=== PATIENT | female | born 1930 | race Caucasian/White ===

== ENCOUNTER → 2019-08-16 | Day surgery (SDC) | payer MEDICARE ==
[2019-08-14 12:33] LABS: BASOPHILS % 0.6 % (0.0-1.0); EOSINOPHILS # (AUTO) 0.1 (0.0-0.4); EOSINOPHILS % 1.6 % (0.0-6.0); HEMATOCRIT 34.2 % (34.2-44.1); HEMOGLOBIN 10.3 g/dL (12.0-16.0); LYMPHOCYTES # (AUTO) 1.6 (1.0-3.2); LYMPHOCYTES % 22.4 % (18.0-39.1); MEAN CORPUSCULAR HEMOGLOBIN 24.3 pg (28-32); MEAN CORPUSCULAR HGB CONC 30.1 g/dL (31-35); MEAN CORPUSCULAR VOLUME 80.9 fL (81-99); MONOCYTES # (AUTO) 0.6 (0.2-0.8); MONOCYTES % 8.2 % (4.4-11.3); NEUTROPHILS # (AUTO) 4.7 (2.1-6.9); NEUTROPHILS % 66.8 % (38.7-80.0); PLATELET COUNT 213 x10e3/uL (140-360); RED BLOOD COUNT 4.23 x10e6/uL (3.6-5.1); RED CELL DISTRIBUTION WIDTH 15.8 % (11.7-14.4)
[~2019-08-16] MED LIST: AMIODARONE HCL200 MG; AMLODIPINE BESYL5 MG PO; BENICAR20 MG PO; COQ-10100 MG; CRESTOR10 MG; FENTANYL CITRATE/PF 100MCG/2 ML INJ ONE; FUROSEMIDE40 MG PO; FUROSEMIDE40 MG/4 ML IV; LEVOTHYROXINE112 MCG PO; METFORMIN HCL500 MG PO; OMEPRAZOLE40 MG; PROPOFOL IV EMULSION 10 MG/ML 50 ML VIAL ONE; XARELTO20 MG
--- OUTSIDE RECORDS SUMMARY | 2019-08-16 05:28 | XMS REPORT ---
Author Author [facility] Address Unknown Phone Unavailable Care Team Providers Care Manager Body Name Role Phone MADHU SANDOVAL Unavailable Unavailable Problems This patient has no known problems. Allergies, Adverse Reactions, Alerts This patient has no known allergies or adverse reactions. Medications This patient has no known medications. Results Test Description Test Time Test Comments Text Results Atomic Results Result Comments MAMMOGRAPHY DIGITAL SCR BILAT [place] [address] Patient Name: TRINITY PHOENIX MR #: [id number] : 1930 Age/Sex: 87/F Req #: [id number] Adm Physician: Ordered by: MADHU SANDOVAL DO Report #: [id number] Location: MAMMO Room/Bed: Procedure: [id number] MG/MAMMOGRAPHY DIGITAL SCR BILAT Exam Date: 10/18/17 Exam Time: 932 REPORT STATUS: Signed #[id number] - MGSCRBIL #BILATERAL DIGITAL SCREENING MAMMOGRAM WITH CAD: 10/18/2017 Comparison is made to exams dated: 10/12/2016 mammogram, 10/06/2015 mammogram and 02/27/2015 mammogram - [facility]. Current study contains 4 films. There are scattered fibroglandular elements in both breasts. Current study was also evaluated with a Computer Aided Detection (CAD) system. There are benign vascular calcifications and calcifications in both breasts. 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 There are 3 mole markers on the left breast. Stable small intramammary lymph node in the right breast. No significant masses, calcifications, or other findings are seen in either breast. There has been no significant interval change. IMPRESSION: BENIGN There is no mammographic evidence of malignancy. A 1 year screening mammogram is recommended. The patient will be notified by letter of the results. Nimco Hooker Jr., D.O. cw/:11/09/2017 11:29:14 Semiconductor Processing Technician: Jolene GOMES(Lupis)(Camron), [facility] letter sent: Compared to Prior B9 Mammogram BI- RADS: 2 Benign Dictated By: NIMCO HOOKER DO 1129 Transcribed By: MAYTE on 11/09/17 1129 COPY TO: MADHU SANDOVAL DO
[2019-08-16 08:10] VITALS: BP 119/67
== END | disposition home or self-care (01) ==
LOC: OR 05:12
PROVIDERS: ATTEND Internal Medicine Gastroenterology
DX: K92.1 Melena (principal); D12.3 Benign neoplasm of transverse colon; K57.30 Diverticulosis of large intestine without perforation or abscess without bleeding; K64.8 Other hemorrhoids; K21.9 Gastro-esophageal reflux disease without esophagitis; E11.9 Type 2 diabetes mellitus without complications; I10 Essential (primary) hypertension; Z71.3 Dietary counseling and surveillance; E66.3 Overweight; G89.29 Other chronic pain; I48.91 Unspecified atrial fibrillation; Z88.6 Allergy status to analgesic agent; Z88.1 Allergy status to other antibiotic agents; Z88.0 Allergy status to penicillin; Z01.810 Encounter for preprocedural cardiovascular examination; Z01.812 Encounter for preprocedural laboratory examination; Z79.02 Long term (current) use of antithrombotics/antiplatelets; Z79.84 Long term (current) use of oral hypoglycemic drugs; Z68.29 Body mass index [BMI] 29.0-29.9, adult; Z86.73 Personal history of transient ischemic attack (TIA), and cerebral infarction without residual deficits; Z80.0 Family history of malignant neoplasm of digestive organs
CPT/HCPCS: 36415 ×2; 45385; 82948; 84132; 85025; 88305; 93005; J2704; J3010; 45378

== ENCOUNTER 2020-04-12 11:57 | Inpatient (IN) | payer MEDICARE ==
[~2020-04-12] VITALS: Ht 198.1 cm; Wt 86.6 kg
[~2020-04-12 11:57] MED LIST changes: -FENTANYL CITRATE/PF 100MCG/2 ML INJ ONE; -PROPOFOL IV EMULSION 10 MG/ML 50 ML VIAL ONE
--- OUTSIDE RECORDS SUMMARY | 2020-04-12 12:01 | XMS REPORT ---
Author Author [facility] Organization [facility] Address [address] [place] [id number] Phone Unavailable Care Team Providers Care Software Support Specialist Name Role Phone MADHU SANDOVAL Attphys Unavailable Problems This patient has no known problems. Allergies, Adverse Reactions, Alerts This patient has no known allergies or adverse reactions. Medications This patient has no known medications. Procedures This patient has no known procedures. Results Test Description Test Time Test Comments Results Result Comments Source MAMMOGRAPHY DIGITAL SCR BILAT [place] [address] Patient Name: TRINITY PHOENIX MR #: [id number] : 1930 Age/Sex: 87/F Req #: [id number] Adm Physician: Ordered by: MADHU SANDOVAL DO Report #: [id number] Location: MAMMO Room/Bed: Procedure: [id number] MG/MAMMOGRAPHY DIGITAL SCR BILAT Exam Date: 10/18/17 Exam Time: 0933 REPORT STATUS: Signed #[id number] - MGSCRBIL #BILATERAL DIGITAL SCREENING MAMMOGRAM WITH CAD: 10/18/2017 Comparison is made to exams dated: 10/12/2016 mammogram, 10/06/2015 mammogram and 02/27/2015 mammogram - [facility]. Current study contains 4 films. There are [...] results. Nimco Hooker Jr., D.O. cw/:11/09/2017 11:29:14 Card Cleaner: Jolene NO)(Camron), [facility] letter sent: Compared to Prior B9 Mammogram BI- RADS: 2 Benign Dictated By: NIMCO HOOKER DO 1129 Transcribed By: MAYTE on 11/09/17 1129 COPY TO: MADHU SANDOVAL DO
--- OUTSIDE RECORDS SUMMARY | 2020-04-12 12:12 | XMS REPORT ---
Author Author [facility] Organization [facility] Address [address] [place] [id number] Phone Unavailable Care Team Providers Care Medical Physicist Name Role Phone MADHU SANDOVAL Attphys Unavailable Problems This patient has no known problems. Allergies, Adverse Reactions, Alerts This patient has no known allergies or adverse reactions. Medications This patient has no known medications. Procedures This patient has no known procedures. Results Test Description Test Time Test Comments Results Result Comments Source MAMMOGRAPHY DIGITAL SCR BILAT [place] [address] Patient Name: TRINITY PHOENIX MR #: [id number] : 1930 Age/Sex: 87/F Req #: [id number] Adm Physician: Ordered by: MADHU SANDOVAL DO Report #: [id number] Location: MAMMO Room/Bed: Procedure: [id number] MG/MAMMOGRAPHY DIGITAL SCR BILAT Exam Date: 10/18/17 Exam Time: 0933 REPORT STATUS: Signed #[id number] - MGSCRBIL #BILATERAL DIGITAL SCREENING MAMMOGRAM WITH CAD: 10/18/2017 Comparison is made to exams dated: 10/12/2016 mammogram, 10/06/2015 mammogram and 02/27/2015 mammogram - [facility]. Current study contains 4 films. There are [...] results. Nimco Hooker Jr., D.O. cw/:11/09/2017 11:29:14 Last Ironer: Jolene GOMES(R)(M), [facility] letter sent: Compared to Prior B9 Mammogram BI- RADS: 2 Benign Dictated By: NIMCO HOOKER DO 1129 Transcribed By: MAYTE on 11/09/17 1129 COPY TO: MADHU SANDOVAL DO
[2020-04-12] MEDS ORDERED: ASPIRIN 81 MG CHEW TAB PO ONE (12:15)
--- NOTE | 2020-04-12 12:25 | NUR ---
notified ct of covid precautions
[2020-04-12] MEDS ORDERED: MEROPENEM 1GM 100 ML IV ONE (12:30)
[2020-04-12] MEDS ORDERED: DILTIAZEM HCL 5 MG/ML 5 ML VIAL IV NR (12:30)
[2020-04-12 12:36] LABS: BASOPHILS # (AUTO) 0.1 (0.0-0.1); BASOPHILS % 0.7 % (0.0-1.0); EOSINOPHILS # (AUTO) 0.1 (0.0-0.4); HEMATOCRIT 36.5 % (34.2-44.1); HEMOGLOBIN 10.5 g/dL (12.0-16.0); LYMPHOCYTES # (AUTO) 2.4 (1.0-3.2); MEAN CORPUSCULAR HEMOGLOBIN 22.7 pg (28-32); MEAN CORPUSCULAR HGB CONC 28.8 g/dL (31-35); MEAN CORPUSCULAR VOLUME 78.8 fL (81-99); MONOCYTES # (AUTO) 1.2 (0.2-0.8); NEUTROPHILS # (AUTO) 9.5 (2.1-6.9); NEUTROPHILS % 70.7 % (38.7-80.0); PLATELET COUNT 371 x10e3/uL (140-360); RED BLOOD COUNT 4.63 x10e6/uL (3.6-5.1); RED CELL DISTRIBUTION WIDTH 18.5 % (11.7-14.4)
[2020-04-12 12:49] LABS: ALBUMIN/GLOBULIN RATIO 0.6 (0.8-2.0); ANION GAP 19.1 mmol/L (8-16); CALCIUM 9.9 mg/dL (8.4-10.2); CREATININE, SERUM 1.55 mg/dL (0.57-1.11); POTASSIUM 4.1 mmol/L (3.5-5.1)
[2020-04-12 12:57] LABS: CREATINE KINASE MB 0.8 ng/mL (0-5.0)
--- NOTE | 2020-04-12 14:14 | Emergency Department Note ---
History of Present Illnes History of Present Illness Chief Complaint: General Medicine Complaints History of Present Illness This is a 89 year old female had a fall at home while on the phone with her son. Granddaughter arrived immediately, door was broken down and pt was found on the floor. Pt admits to feeling dizzy prior to the fall. Pt also complaining of cough for several weeks. Chief Complaint Comment REPORTS SHORTNESS OF BREATH FOR 1 WEEK AND COUGH FOR 6 MONTHS. CLIENT REPORTS A MECHANICAL FALL TODAY. CLIENT RECEIVED IN C-COLLAR FROM EMS. . Historian: Patient, Strategic Partnership Manager/EMS Arrival Mode: [facility] EMS Treatment SPECIAL OFFICER: O2, EKG, See EMS Report Table Hand Required: No Radiation: extremity Onset quality: sudden Duration (how long): hour(s) Timing of current episode: constant Chronicity: new Relieving factors: none Past Medical/Family History Physician Review I have reviewed the patient's past medical and family history. Any updates have been documented here. Past Medical History Recent Fever: No Clinical Suspicion of Infectio: Yes New/Unexplained Change in Ment: No Past Medical History: Hypertension, A-Fib Social History Smoking Cessation: Never Smoker Counseling Performed: No Alcohol Use: None Any Illegal Drug Use: No TB Exposure/Symptoms: No Physically hurt or threatened: No Other Any Pre-Existing Lines (PICC,: No Is patient up to date on immun: Yes Last Flu: UTD Last Pneumovax: UTD Review of Systems Review of Systems Constitutional: no symptoms EENTM: no symptoms Cardiovascular: no symptoms Respiratory: as per HPI, cough, dyspnea, dyspnea on exertion Gastrointestinal: no symptoms Genitourinary: no symptoms Musculoskeletal: back pain, joint pain Neurological: no symptoms, other (dizziness) Psychological: no symptoms Endocrine: no symptoms Hematological/Lymphatic: no symptoms Review of other systems All other systems reviewed and negative. Physical Exam Related Data Allergies: Coded Allergies: Penicillins (Verified Allergy, Unknown, 08/14/19) cefdinir (Verified Allergy, Unknown, 08/14/19) levofloxacin (Verified Allergy, Unknown, 08/14/19) meperidine (Verified Allergy, Unknown, 08/14/19) Uncoded Allergies: BIOXIN (Allergy, Unknown, 08/14/19) Triage Vital Signs Vital Signs Date Time Temp Pulse Resp B/P (MAP) Pulse Ox O2 Delivery O2 Flow Rate FiO2 04/12/20 12:00 98.9 100 20 155/60 90 Vital signs reviewed: Yes Physical Exam CONSTITUTIONAL Constitutional: well-developed, well-nourished HENT HENT: normocephalic, atraumatic, oropharynx clear/moist, nose normal HENT L/R: left ext ear normal, right ext ear normal EYES Eyes: PERRL, conjunctivae normal NECK Neck: ROM normal PULMONARY Pulmonary: effort normal, respiratory distress (tachypnea ) CARDIOVASCULAR Cardiovascular: regular rhythm, heart sounds normal, capillary refill normal, normal rate GASTROINTESTINAL Abdominal: soft, nontender, bowel sounds normal GENITOURINARY Genitourinary: exam deferred SKIN Skin: warm, dry MUSCULOSKELETAL Musculoskeletal: ROM normal NEUROLOGICAL Neurological: alert, no gross motor or sensory deficits PSYCHOLOGICAL Psychological: mood/affect normal, judgement normal Results Laboratory Result Diagram: 04/12/20 1214 04/12/20 1214 Laboratory Laboratory Tests Test 04/12/20 12:14 White Blood Count 13.42 x10e3/uL (4.8-10.8) Red Blood Count 4.63 x10e6/uL (3.6-5.1) Hemoglobin 10.5 g/dL (12.0-16.0) Hematocrit 36.5 % (34.2-44.1) Mean Corpuscular Volume 78.8 fL (81-99) Mean Corpuscular Hemoglobin 22.7 pg (28-32) Mean Corpuscular Hemoglobin Concent 28.8 g/dL (31-35) Red Cell Distribution Width 18.5 % (11.7-14.4) Platelet Count 371 x10e3/uL (140-360) Neutrophils (%) (Auto) 70.7 % (38.7-80.0) Lymphocytes (%) (Auto) 18.0 % (18.0-39.1) Monocytes (%) (Auto) 9.0 % (4.4-11.3) Eosinophils (%) (Auto) 1.0 % (0.0-6.0) Basophils (%) (Auto) 0.7 % (0.0-1.0) Neutrophils # (Auto) 9.5 (2.1-6.9) Lymphocytes # (Auto) 2.4 (1.0-3.2) Monocytes # (Auto) 1.2 (0.2-0.8) Eosinophils # (Auto) 0.1 (0.0-0.4) Basophils # (Auto) 0.1 (0.0-0.1) Absolute Immature Granulocyte (auto 0.08 x10e3/uL (0-0.1) Sodium Level 137 mmol/L (136-145) Potassium Level 4.1 mmol/L (3.5-5.1) Chloride Level 101 mmol/L (98-107) Carbon Dioxide Level 21 mmol/L (22-29) Anion Gap 19.1 mmol/L (8-16) Blood Urea Nitrogen 19 mg/dL (7-26) Creatinine 1.55 mg/dL (0.57-1.11) Estimat Glomerular Filtration Rate 32 ML/MIN (60-) BUN/Creatinine Ratio 12 (6-25) Glucose Level 207 mg/dL (74-118) Calcium Level 9.9 mg/dL (8.4-10.2) Total Bilirubin 0.6 mg/dL (0.2-1.2) Aspartate Amino Transf (AST/SGOT) 20 IU/L (5-34) Alanine Aminotransferase (ALT/SGPT) 15 IU/L (0-55) Alkaline Phosphatase 84 IU/L (40-150) Creatine Kinase 60 IU/L (29-168) Creatine Kinase MB 0.80 ng/mL (0-5.0) Troponin I 0.013 ng/mL (0-0.300) B-Type Natriuretic Peptide 433.2 pg/mL (0-100) Total Protein 7.8 g/dL (6.5-8.1) Albumin 3.0 g/dL (3.5-5.0) Globulin 4.8 g/dL (2.3-3.5) Albumin/Globulin Ratio 0.6 (0.8-2.0) Lab results reviewed: Yes Laboratory comments elevated BNP noted Leukocytosis noted Imaging Imaging results reviewed: Yes Impressions IMPRESSION: Limited evaluation of the left hip due to internal rotation. Cannot exclude nondisplaced fracture. Recommend left hip x-ray series. Otherwise, no acute fractures in the pelvis. IMPRESSION: Bilateral interstitial edema with a small left pleural effusion. Superimposed atypical pneumonia cannot be excluded. Recommend follow-up chest x-ray after diuresis. IMPRESSION: Head CT: No acute post traumatic intracranial abnormalities, particularly no hemorrhage. Cervical spine CT: 1. No acute fractures or dislocations. 2. Chronic degenerative changes as described. Note: Acute post traumatic spinal cord, vascular or ligamentous injury cannot adequately be assessed with CT. Signed by: Dr. Lesley Martin M.D. on 04/12/2020 2:26 PM IMPRESSION: Head CT: No acute post traumatic intracranial abnormalities, particularly no hemorrhage. Cervical spine CT: 1. No acute fractures or dislocations. 2. Chronic degenerative changes as described. Note: Acute post traumatic spinal cord, vascular or ligamentous injury cannot adequately be assessed with CT. 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 Assessment & Plan Assessment & Plan Problems: (1) CHF exacerbation (2) Syncope (3) Atrial fibrillation (4) Severe sepsis (5) Pneumonia Assessment & Plan 1. Severe Sepsis Time: 1222 Severe Sepsis/PNA 1. Source (time: suspected respiratory on arrival-PNA) 1222 2. SIRS (time: 1222 T 101 HR 128 RR 34) 3. Organ Dysfunction (time: possible AMS 1222 ) Interventions: Blood cultures collected 1224 Lactic acid collected 1224 Broad Spectrum antibiotics completed 1329 Lactic acid #1: 1431 (time resulted) Lactic acid #2: not indicated 2. CHF Exacerbation: -BNP 433 -lasix given -CXR showing pulmonary edema Depart Disposition: ADMITTED Last Vital Signs Date Time Temp Pulse Resp B/P (MAP) Pulse Ox O2 Delivery O2 Flow Rate FiO2 04/12/20 13:38 100 27 157/65 97 04/12/20 12:53 98.3 Home Meds Reported Medications Furosemide (FUROSEMIDE) 40 Mg Tablet, 40 MG PO Daily, #30 TAB 08/16/19 Ubidecarenone (COQ-10) 100 Mg Capsule 08/14/19 Amiodarone Hcl (AMIODARONE HCL) 200 Mg Tablet 08/14/19 Olmesartan Medoxomil (BENICAR) 20 Mg Tablet, 40 MG PO DAILY, #30 TAB 08/14/19 Rivaroxaban (XARELTO) 20 Mg Tablet, 15 08/14/19 Metformin Hcl (METFORMIN HCL) 500 Mg Tablet, 500 MG PO BID, #60 TAB 08/14/19 Amlodipine Besylate (AMLODIPINE BESYLATE) 5 Mg Tablet, 5 MG PO DAILY, #30 TAB 08/14/19 Rosuvastatin Calcium (CRESTOR) 10 Mg Tab, 20 THERAPEUTICALLY SUBSTITUTED WITH SIMVASTATIN 40MG 08/14/19 Levothyroxine Sodium (LEVOTHYROXINE SODIUM) 112 Mcg Tablet, 112 MCG PO DAILY, #30 TAB 08/14/19 Omeprazole (OMEPRAZOLE) 40 Mg Capsule.dr, 20 08/14/19 Medications in the ED Aspirin 81 mg PRN ONCE PO Last administered on 04/12/20at 12:30; Admin Dose 81 MG; Start 04/12/20 at 12:15; Stop 04/12/20 at 12:17; Status DC Diltiazem HCl 10 mg NOW IV Last administered on 04/12/20at 12:30; Admin Dose 10 MG; Start 04/12/20 at 12:30; Stop 04/12/20 at 13:59 Meropenem 100 ml @ 100 mls/hr ONCE ONCE IV ; Start 04/12/20 at 12:30; Stop 04/12/20 at 13:29; Status DC JOSE MAN, April 12, 2020 14:14
--- NOTE | 2020-04-12 14:29 | Diagnostic Imaging Report ---
EXAMINATION: Head and cervical spine CT without contrast. HISTORY: Status post fall, neck pain, low back pain, shortness of breath, cough COMPARISON: None. TECHNIQUE: Multidetector axial images were obtained without contrast from the foramen magnum to the vertex and through the cervical spine. The images were reconstructed using brain and bone algorithms. Thin section brain images were reformatted into coronal and sagittal planes. Dose modulation, iterative reconstruction, and/or weight based adjustment of the mA/kV was utilized to reduce the radiation dose to as low as reasonably achievable. HEAD CT FINDINGS: Skull/scalp: No lytic or blastic lesions. No fractures. Parenchyma: Normal. No mass, hemorrhage or CT evidence of acute vascular insult. Brain volume: Normal for age. Ventricles: No hydrocephalus or displacement. Arteries: No density suggestive of thrombus. Dural sinuses: No abnormal density. Extra-axial spaces: No abnormal density. Foramen magnum: No mass, Chiari malformation, or basilar invagination. Sella: No obvious mass. Paranasal/mastoid sinuses: Mucosal inflammatory thickening of the right maxillary sinus. CERVICAL SPINE CT FINDINGS: Alignment:Normal alignment and lordosis. Soft tissues: Partially calcified nodule in the left lobe of the thyroid gland which does not require follow follow-up. Vertebrae: Normal height and density. No acute fracture, infection or neoplasm. Degenerative changes: C1-C2: Normal C2-C3: Disc osteophyte compresses formation, bilateral uncovertebral and facet arthrosis. No stenosis. C3-C4: Disc osteophyte complex formation asymmetric to the right, uncovertebral and facet arthrosis. Mild canal and right foraminal stenosis. C4-C5: Asymmetric left disc osteophyte, uncovertebral and facet arthrosis. Minimal left foraminal narrowing. C5-C6: Disc osteophyte complex formation and bilateral uncovertebral arthrosis. Mild canal narrowing. No significant foraminal stenosis. C6-C7: Bilateral uncovertebral arthrosis. No stenosis. Incidental findings: Partially visualized large left pleural effusion. Partially visualized small tube in the right nasolacrimal duct. IMPRESSION: Head CT: No acute post traumatic intracranial abnormalities, particularly no hemorrhage. Cervical spine CT: 1. No acute fractures or dislocations. 2. Chronic degenerative changes as described. Note: Acute post traumatic spinal cord, vascular or ligamentous injury cannot adequately be assessed with CT. Signed by: Dr. Lesley Martin M.D. on 04/12/2020 2:26 PM
[2020-04-12 15:10] LABS: CLARITY,URINE SL CLOUDY (CLEAR); COLOR,URINE YELLOW (YELLOW)
[2020-04-12 15:11] LABS: LEUKOCYTE ESTERASE ,URINE NEGATIVE (NEGATIVE); NITRITE,URINE NEGATIVE (NEGATIVE); PROTEIN,URINE DIPSTICK >=300 (NEGATIVE)
[2020-04-12 15:12] LABS: KETONES,URINE NEGATIVE (NEGATIVE); URINE UROBILINOGEN 1 mg/dL (0.2 - 1)
[2020-04-12 15:13] LABS: BILIRUBIN,URINE SMALL (NEGATIVE)
[2020-04-12 15:19] LABS: BACTERIA,URINE MANY /HPF; EPITHELIAL CELLS,URINE FEW /LPF
--- NOTE | 2020-04-12 15:28 | Diagnostic Imaging Report ---
EXAMINATION: CHEST SINGLE (NOT PORTABLE) INDICATION: ^Y ^fall ^[id number] ^1319 COMPARISON: None FINDINGS: AP view TUBES and LINES: None. LUNGS: Lungs are well inflated. Diffuse bilateral interstitial opacities. Bibasilar atelectasis. PLEURA: Small left pleural effusion. No pneumothorax. HEART AND MEDIASTINUM: Mild enlargement of the cardiac silhouette. BONES AND SOFT TISSUES: No acute osseous lesion. Soft tissues are unremarkable. UPPER ABDOMEN: No free air under the diaphragm. IMPRESSION: Bilateral interstitial edema with a small left pleural effusion. Superimposed atypical pneumonia cannot be excluded. Recommend follow-up chest x-ray after diuresis. Signed by: Dr. Cindy Murguia M.D. on 04/12/2020 3:25 PM
[2020-04-12 15:30] LABS: HYPOCHROMASIA SLIGHT; RBC MORPHOLOGY COMMENT ABNORMAL
--- NOTE | 2020-04-12 15:30 | Diagnostic Imaging Report ---
PELVIS X-RAY - 1 VIEW HISTORY: ^Y ^fall ^[id number] ^[id number] COMPARISON: None available. FINDINGS: Bones: No acute displaced fracture. Limited evaluation of the left hip due to internal rotation. Osseous alignment is within normal limits. Joints: Moderate degenerative changes of both sacroiliac joints and lower lumbar spine. Soft tissues: The soft tissues appear unremarkable. IMPRESSION: Limited evaluation of the left hip due to internal rotation. Cannot exclude nondisplaced fracture. Recommend left hip x-ray series. Otherwise, no acute fractures in the pelvis. Signed by: Dr. Cindy Murguia M.D. on 04/12/2020 3:27 PM
[2020-04-12] MEDS ORDERED: MEROPENEM 1GM 100 ML IV SCH (15:45)
[2020-04-12] MEDS: FUROSEMIDE INJ 10 MG/ML 4 ML VIAL IV SCH (16:38)
--- NOTE | 2020-04-12 18:50 | NUR ---
PATIENT RECEIVED FROM ER PER STRETCHER. ALERT AND VERBALLY RESPONSIVE. SKIN WARM AND DRY TO TOUCH. NOTED WITH SOME NON PRODUCTIVE COUGH. O2 SAT AT 88-90% ON RA. O2 APPLIED VIA N/C AT 2L. SAT AT 95-98% AT THIS TIME. TELEMETRY BOX IN PLACE. BED IN LOWER POSITION, CALL LIGHT AT REACH.
--- NOTE | 2020-04-12 19:26 | NUR ---
BED SIDE REPORT GIVEN TO ON COMING NURSE.
[2020-04-12 19:30] VITALS: BP 125/82
--- NOTE | 2020-04-12 19:30 | NUR ---
PATENT IS A NEW ADMIT THAT ARRIVED VIA STRETCHER. PATIENT IS AWAKE AND TALKING. PATIENT IS RESTING IN BED. WILL CONTINUE TO MONITOR PATIENT.
[2020-04-12 19:35] VITALS: BP 125/82
[2020-04-12 20:00] VITALS: BP 143/85
[2020-04-12] MEDS ORDERED: ONDANSETRON HCL INJ 2MG/ML 2ML 2 MG/ML VIAL IV PRN (21:00)
[2020-04-12] MEDS ORDERED: DOCUSATE SODIUM 100 MG CAP PO PRN (21:00)
[2020-04-12] MEDS: ACETAMINOPHEN 325 MG TAB PO PRN (21:10)
[2020-04-12] MEDS: ZOLPIDEM TARTRATE 5 MG TAB PO PRN (21:11)
[2020-04-12] MEDS: BENZONATATE 100 MG CAP PO SCH (22:28)
[2020-04-13] VITALS (7 sets, daily range): BP systolic 110–141; BP diastolic 57–75
[2020-04-13] MEDS: BENZONATATE 100 MG CAP PO SCH ×3 (05:35→20:07)
--- NOTE | 2020-04-13 06:59 | NUR ---
Consulted physician notified of routine consultation. states she will be in to see the patient later today.
[2020-04-13] MEDS ORDERED: DEXTROSE 50% SYRINGE 50 ML IV PRN (07:00)
--- NOTE | 2020-04-13 07:00 | NUR ---
Spoke with MD regarding metformin. MD gave orders to put patient on low dose sliding scale.
--- NOTE | 2020-04-13 07:01 | NUR ---
report given to day nurse. patient is resting comfortably in the bed. bed is n the lowest position and call light is within reach.
--- NOTE | 2020-04-13 07:12 | NUR ---
Received patient lying in bed with eyes open. Respiration even and unlabored without SOB. Call light in reach.
[2020-04-13] MEDS: INSULIN REGULAR, HUMAN 100 UNIT/1 ML 3ML VIAL SQ SCH ×4 (08:16→21:39)
[2020-04-13] MEDS: LEVOTHYROXINE SODIUM 112 MCG TAB PO SCH (08:20)
[2020-04-13] MEDS: PANTOPRAZOLE SOD 40 MG TABEC PO SCH (08:20)
[2020-04-13] MEDS: AMIODARONE HCL 200 MG TAB PO SCH (08:20)
[2020-04-13] MEDS: AMLODIPINE BESYLATE 5 MG TAB PO SCH (08:20)
[2020-04-13] MEDS: FUROSEMIDE INJ 10 MG/ML 4 ML VIAL IV SCH ×2 (08:20→21:59)
[2020-04-13] MEDS: OLMESARTAN 20 MG TAB PO SCH (08:35)
[2020-04-13 10:01] LABS: BASOPHILS # (AUTO) 0.1 (0.0-0.1); BASOPHILS % 0.6 % (0.0-1.0); EOSINOPHILS # (AUTO) 0.2 (0.0-0.4); EOSINOPHILS % 1.7 % (0.0-6.0); HEMATOCRIT 32.3 % (34.2-44.1); HEMOGLOBIN 9.1 g/dL (12.0-16.0); LYMPHOCYTES # (AUTO) 0.7 (1.0-3.2); LYMPHOCYTES % 8.2 % (18.0-39.1); MEAN CORPUSCULAR HGB CONC 28.2 g/dL (31-35); MEAN CORPUSCULAR VOLUME 78.2 fL (81-99); MONOCYTES # (AUTO) 0.7 (0.2-0.8); MONOCYTES % 7.9 % (4.4-11.3); NEUTROPHILS # (AUTO) 7.2 (2.1-6.9); NEUTROPHILS % 81.3 % (38.7-80.0); PLATELET COUNT 275 x10e3/uL (140-360); RED BLOOD COUNT 4.13 x10e6/uL (3.6-5.1); RED CELL DISTRIBUTION WIDTH 18.6 % (11.7-14.4)
[2020-04-13 10:18] LABS: ANION GAP 16.4 mmol/L (8-16); CALCIUM 9.3 mg/dL (8.4-10.2); CREATININE, SERUM 1.41 mg/dL (0.57-1.11); POTASSIUM 4.4 mmol/L (3.5-5.1)
--- NOTE | 2020-04-13 12:47 | NUR ---
H&P cc: sob HPI: 89yoF, PCP , developed SOB for 1 week. no cp. PMH: PAF, hypothyroidism, HTN, DM, CVA 2004, peripheral edema PSHx: hysterectomy, cholecystectomy, cataract, nasal Allergies; see emr FH/SH; ; no cigs meds; see MAR ROS: no f/c/s/N/V/D/QUINONES/skin rash/back pain/leg pain/confusion v/s revd PE tired appearing anicteric ns1s2 reduced bs; cough wiht deep inspiration Kingsley soft nt nd a&ox3; normal speech labs/meds revd A/P: Sepsis- IV merrem UTI- IV merrem JUSTINE vs CKD Pulmonary edema- IV lasix AECHF- IV lasix Hypothyroidism PAF- amio; AC per cardiology Prop: scd dispo: Codey Wheeler MD, PHD.
[2020-04-13] MEDS: ALBUTEROL/IPRATROPIUM 3 ML NEB NEB PRN (16:45)
--- NOTE | 2020-04-13 18:58 | NUR ---
Report given to production supervisor off shift. Respiration even and unlabored without SOB. Call light in reach.
[2020-04-13] MEDS ORDERED: SODIUM CHLORIDE 0.9% 250ML 250 ML ONE (20:00)
[2020-04-13] MEDS: MEROPENEM 1GM 100 ML IV SCH (20:07)
[2020-04-13] MEDS: ACETAMINOPHEN 325 MG TAB PO PRN (21:59)
[2020-04-13] MEDS: ZOLPIDEM TARTRATE 5 MG TAB PO PRN (21:59)
[2020-04-14] VITALS (7 sets, daily range): BP systolic 98–127; BP diastolic 47–89
--- NOTE | 2020-04-14 00:49 | Consultation ---
DATE OF CONSULTATION: 04/13/2020 Cardiology Consultation REQUESTING PHYSICIAN: Codey Wheeler MD. REASON FOR CONSULTATION: CHF. HISTORY OF PRESENT ILLNESS: This is an 89-year-old woman with history of hypertension, hyperlipidemia, diabetes mellitus, right sided carotid artery disease, and atrial fibrillation, who presented to the ER after a fall. The patient reports she has been coughing since August. Her cough was worse this last week with dyspnea on exertion. She denied any fever or chills or recent sick contacts. In addition, she denies any chest pain, orthopnea, or PND. On the day of admission, she had been on the phone when she suffered a fall. Family arrived quickly and found the patient on the floor. She was therefore brought to the ER for further evaluation. Of note, the patient reported feeling dizzy just prior to her fall. She does endorse lower extremity edema, but notes this is unchanged. From baseline, she reports occasional palpitations. REVIEW OF SYSTEMS: Negative except as per HPI. PAST MEDICAL HISTORY: 1. Hypertension. 2. Hyperlipidemia. 3. Diabetes mellitus. 4. Right carotid artery disease. 5. Atrial fibrillation. PAST SURGICAL HISTORY: 1. Hysterectomy. 2. Cholecystectomy. 3. Eye surgery. 4. Nasal surgery. ALLERGIES: PLEASE SEE EMR. MEDICATIONS: Please see medication list. SOCIAL HISTORY: Denies tobacco, alcohol, or illicit drugs. FAMILY HISTORY: Pertinent for father with myocardial infarction. PHYSICAL EXAMINATION: VITAL SIGNS: Temperature 98.8 degrees, pulse 97, respiratory rate 18, blood pressure 123/73, and oxygen saturation 98% on 2 L nasal cannula. GENERAL: Elderly woman, in no acute distress. Awake and alert. HEENT: Normocephalic and atraumatic. Pupils are equal. No scleral icterus. NECK: Supple. No thyromegaly or cervical lymphadenopathy. No carotid bruits. LUNGS: Clear to auscultation bilaterally. No wheezes or crackles. HEART: Normal rate, regular rhythm. No murmur. Normal S1 and S2. ABDOMEN: Soft and nontender. EXTREMITIES: Trace edema. NEUROLOGIC: Nonfocal exam. LABORATORY DATA: WBC 8.82, hemoglobin 9.1, hematocrit 32.3, platelets 275. Sodium 136, potassium 4.4, chloride 100, CO2 of 24, BUN 17, and creatinine 1.41. BNP 433. IMPRESSION: 1. Fall. 2. Dizziness. 3. Ryjky-nw-sfqyfol systolic and diastolic heart failure, possible atypical pneumonia. 4. Hypertension. 5. Hyperlipidemia. 6. Diabetes mellitus. 7. Atrial fibrillation. RECOMMENDATIONS: Gentle IV diuretics, monitor the patient closely on telemetry for any bradyarrhythmias. Obtain carotid Doppler. Continue home cardiac medications otherwise including Xarelto for CVA prophylaxis. Last echocardiogram was reviewed. The patient does not have any significant valvular abnormalities that would explain her symptoms. Thank you for this consult. We will continue to follow. Yumiko Sterling MD ABS/MODL /[id number]
[2020-04-14] MEDS: BENZONATATE 100 MG CAP PO SCH ×3 (05:30→21:30)
--- NOTE | 2020-04-14 06:37 | NUR ---
patient is resting comfortably in the bed. no distress noted. bed is in lowest position.
[2020-04-14 06:48] LABS: BASOPHILS % 0.6 % (0.0-1.0); EOSINOPHILS # (AUTO) 0.2 (0.0-0.4); EOSINOPHILS % 3.6 % (0.0-6.0); HEMATOCRIT 32.7 % (34.2-44.1); HEMOGLOBIN 9.3 g/dL (12.0-16.0); LYMPHOCYTES % 15.1 % (18.0-39.1); MEAN CORPUSCULAR HEMOGLOBIN 22.4 pg (28-32); MEAN CORPUSCULAR HGB CONC 28.4 g/dL (31-35); MEAN CORPUSCULAR VOLUME 78.8 fL (81-99); MONOCYTES # (AUTO) 0.7 (0.2-0.8); MONOCYTES % 11.2 % (4.4-11.3); NEUTROPHILS # (AUTO) 4.4 (2.1-6.9); NEUTROPHILS % 69.2 % (38.7-80.0); PLATELET COUNT 262 x10e3/uL (140-360); RED BLOOD COUNT 4.15 x10e6/uL (3.6-5.1); RED CELL DISTRIBUTION WIDTH 18.7 % (11.7-14.4)
[2020-04-14 06:52] LABS: ANION GAP 17.7 mmol/L (8-16); CALCIUM 9.2 mg/dL (8.4-10.2); CREATININE, SERUM 1.34 mg/dL (0.57-1.11); POTASSIUM 3.7 mmol/L (3.5-5.1)
[2020-04-14] MEDS: INSULIN REGULAR, HUMAN 100 UNIT/1 ML 3ML VIAL SQ SCH ×4 (07:41→21:00)
[2020-04-14] MEDS: ALBUTEROL/IPRATROPIUM 3 ML NEB NEB PRN (08:06)
[2020-04-14 08:26] LABS: ANISOCYTOSIS MODERATE; HYPOCHROMASIA SLIGHT; OVALOCYTES FEW; PLATELET ESTIMATE ADEQUATE; PLATELET MORPHOLOGY COMMENT NORMAL; POLYCHROMASIA FEW
[2020-04-14 08:27] LABS: MICROCYTOSIS SLIGHT; RBC MORPHOLOGY COMMENT ABNORMAL
[2020-04-14] MEDS: AMLODIPINE BESYLATE 5 MG TAB PO SCH (08:53)
[2020-04-14] MEDS: OLMESARTAN 20 MG TAB PO SCH (09:19)
[2020-04-14] MEDS: FUROSEMIDE INJ 10 MG/ML 4 ML VIAL IV SCH ×2 (09:19→17:18)
[2020-04-14] MEDS: PANTOPRAZOLE SOD 40 MG TABEC PO SCH (09:19)
[2020-04-14] MEDS: LEVOTHYROXINE SODIUM 112 MCG TAB PO SCH (09:19)
[2020-04-14] MEDS: MEROPENEM 1GM 100 ML IV SCH ×2 (09:19→21:30)
[2020-04-14] MEDS: AMIODARONE HCL 200 MG TAB PO SCH (09:19)
[2020-04-14] MEDS ORDERED: CHLORASEPTIC SPRAY 177 ML BTL MM PRN (09:30)
--- NOTE | 2020-04-14 14:40 | NUR ---
IM- progress note ROS: see below ROS: no f/c/s/N/V/D/QUINONES/skin rash/back pain/leg pain/confusion v/s revd PE tired appearing anicteric ns1s2 reduced bs; cough wiht deep inspiration Kingsley soft nt nd a&ox3; normal speech labs/meds revd A/P: Sepsis- IV merrem UTI- IV merrem JUSTINE vs CKD Pulmonary edema- IV lasix AECHF- IV lasix Hypothyroidism PAF- amio; AC per cardiology Prop: scd dispo: 5-18 continue antibiotics and diuretics; less SOB; still coughing; strict I/O Codey Wheeler MD, PHD.
[2020-04-14] MEDS ORDERED: ONDANSETRON HCL 4 MG ORAL DISINTEGRATING TAB PO PRN (16:00)
--- NOTE | 2020-04-14 17:36 | NUR ---
Nutrition Screen Note RD Recommendation for Physician: - Continue current diet Plan of Care: RD following, monitoring for tolerance and adequacy Nutrition reason for involvement: DX: CHF on admit Primary Diagnose(s): CHF, PNA, sepsis PMH: PAF, HTN DM, CVA, cholecystectomy Ht: 66 in (per pt) Wt: 192.44 lb BMI: 22.2 kg/m2 IBW: [address] Assessment: (04/14) 89 YOF admitted for CHF, PNA, and sepsis. Pt seen today per dx for CHF. 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 Pt reports that family do the grocery shopping and cooking at home currently. Pt reports UBW of 185#, no wt loss noted. Pt denies any N/V/C/D. Chart reviewed. Labs and meds reviewed. Pt with no questions or concerns at time of visit. Will f/u with diet education when appropriate. Will continue to monitor. Current Diet: Cardiac Malnutrition Evaluation (04/14/20) The patient does not meet criteria for a specified degree of malnutrition at this time. Will re-evaluate at follow-up as appropriate. Diet Education Needs Assessment: Diet education indicated, pt not appropriate at this time. Diet tolerance: tolerating po Nutrition Care Level: low Signed: Gila Bradford RD, LD, [facility]
--- NOTE | 2020-04-14 17:55 | NUR ---
patient resting in bed, not in any SOB or distress, call light in reach. Dr Wheeler had rounds
[2020-04-15] VITALS (7 sets, daily range): BP systolic 107–140; BP diastolic 47–77
[2020-04-15] MEDS: BENZONATATE 100 MG CAP PO SCH ×3 (05:45→21:50)
--- NOTE | 2020-04-15 06:00 | NUR ---
RAMSAY CARE PERFORMED USING DONOVAN SOAP WIPES
--- NOTE | 2020-04-15 07:10 | NUR ---
REPORT GIVEN TO [facility] NURSE. AAOX3. NO SIGNS OF IV INFILTRATION. RESTING IN BED. BED LOCKED AND IN LOW POSITION. CALL LIGHT WITHIN REACH.
[2020-04-15] MEDS: INSULIN REGULAR, HUMAN 100 UNIT/1 ML 3ML VIAL SQ SCH ×4 (07:46→20:18)
--- NOTE | 2020-04-15 08:34 | NUR ---
IM- progress note ROS: see below ROS: no f/c/s/N/V/D/QUINONES/skin rash/back pain/leg pain/confusion v/s revd PE tired appearing anicteric ns1s2 reduced bs; cough with deep inspiration Kingsley soft nt nd a&ox3; normal speech labs/meds revd A/P: Sepsis- IV merrem UTI- IV merrem JUSTINE vs CKD Pulmonary edema- IV lasix AECHF- IV lasix Hypothyroidism PAF- amio; AC per cardiology Prop: scd dispo: 5-18 continue antibiotics and diuretics; less SOB; still coughing; strict I/O -19 improving; Codey Wheeler MD, PHD.
[2020-04-15] MEDS: FUROSEMIDE INJ 10 MG/ML 4 ML VIAL IV SCH ×2 (08:44→17:09)
[2020-04-15] MEDS: MEROPENEM 1GM 100 ML IV SCH ×2 (08:44→20:37)
[2020-04-15] MEDS: AMLODIPINE BESYLATE 5 MG TAB PO SCH (08:45)
[2020-04-15] MEDS: PANTOPRAZOLE SOD 40 MG TABEC PO SCH (08:45)
[2020-04-15] MEDS: AMIODARONE HCL 200 MG TAB PO SCH (08:45)
[2020-04-15] MEDS: OLMESARTAN 20 MG TAB PO SCH (08:45)
[2020-04-15] MEDS: LEVOTHYROXINE SODIUM 112 MCG TAB PO SCH (08:45)
--- NOTE | 2020-04-15 09:11 | NUR ---
Assisted patient to restroom, not in any distress or SOB, Tolerated breakfast
[2020-04-15] MEDS: ALBUTEROL/IPRATROPIUM 3 ML NEB NEB PRN ×2 (15:57→19:45)
[2020-04-16] VITALS (9 sets, daily range): BP systolic 90–121; BP diastolic 40–79
[2020-04-16] MEDS: ALBUTEROL/IPRATROPIUM 3 ML NEB NEB PRN ×4 (03:40→19:30)
[2020-04-16] MEDS: BENZONATATE 100 MG CAP PO SCH ×3 (05:20→21:40)
--- NOTE | 2020-04-16 05:44 | NUR ---
PROVIDED RAMSAY CARE VIA DONOVAN SOAP WIPES. TOLERATED WELL.
--- NOTE | 2020-04-16 06:51 | NUR ---
RECEIVED BEDSIDE SHIFT REPORT FROM OFF GOING NURSE. PATIENT IS RESTING IN BED, NO S/S OF DISTRESS NOTED. DENIES PAIN OR DISCOMFORT AT THIS TIME. CALL LIGHT WITHIN REACH. BED IN THE LOWEST POSITION.
--- NOTE | 2020-04-16 07:15 | NUR ---
REPORT GIVEN TO [facility] NURSE. AAOX3. RESTING IN BED. NO SIGNS OF IV INFILTRATION. BED LOCKED AND IN LOW POSITION. CALL LIGHT WITHIN REACH.
--- NOTE | 2020-04-16 07:21 | NUR ---
IM- progress note ROS: see below ROS: no f/c/s/N/V/D/QUINONES/skin rash/back pain/leg pain/confusion v/s revd PE tired appearing anicteric ns1s2 reduced bs; cough with deep inspiration Kingsley soft nt nd a&ox3; normal speech labs/meds revd A/P: Sepsis- IV merrem UTI- IV merrem JUSTINE vs CKD Pulmonary edema- IV lasix AECHF- IV lasix Hypothyroidism PAF- amio; AC per cardiology Prop: scd dispo: 5-18 continue antibiotics and diuretics; less SOB; still coughing; strict I/O 5-19 improving; 5-20 making progress; d/c planning; Codey Wheeler MD, PHD.
[2020-04-16] MEDS: FUROSEMIDE INJ 10 MG/ML 4 ML VIAL IV SCH ×2 (08:06→16:46)
[2020-04-16] MEDS: MEROPENEM 1GM 100 ML IV SCH ×2 (08:06→21:40)
[2020-04-16] MEDS: INSULIN REGULAR, HUMAN 100 UNIT/1 ML 3ML VIAL SQ SCH ×4 (08:06→21:40)
[2020-04-16] MEDS: AMIODARONE HCL 200 MG TAB PO SCH (08:07)
[2020-04-16] MEDS: LEVOTHYROXINE SODIUM 112 MCG TAB PO SCH (08:07)
[2020-04-16] MEDS: AMLODIPINE BESYLATE 5 MG TAB PO SCH (08:07)
[2020-04-16] MEDS: OLMESARTAN 20 MG TAB PO SCH (08:07)
[2020-04-16] MEDS: PANTOPRAZOLE SOD 40 MG TABEC PO SCH (08:07)
--- NOTE | 2020-04-16 08:28 | NUR ---
RAMSAY CARE PROVIDED AT THIS TIME.
--- NOTE | 2020-04-16 10:16 | NUR ---
ASKED DR. MIN IF OK TO DC RAMSAY, PER MD KEEP RAMSAY IN UNTIL CLOSER TO DISCHARGE.
--- NOTE | 2020-04-16 10:50 | NUR ---
ASSESSMENT: Spiritual concern Pt eager to return home. Pt states she has family support. Pt mildly traumatized by events leading up to admission. Intervention: Provided hospitality and empathic listening. Facilitated illness review and identification of emotions. Provided prayer and information 0n how to reach feather maker, if needed. Outcome: Pt expressed appreciation for visit. No need to follow at this time. TRELL VIVAS Quality Control Assistant Spiritual Care Department O: [phone]
--- NOTE | 2020-04-16 15:17 | NUR ---
PER DR. MIN, AMBULATE PATIENT ON ROOM AIR AND ASSESS 02 SAT.
--- NOTE | 2020-04-16 15:40 | NUR ---
ATTEMPTED TO AMBULATE PATIENT AT THIS TIME TO ASSESS O2 SAT. PATIENT STATED TO LET HER REST, SHE IS NOT FOR A WALK RIGHT NOW. NOTIFIED DR. MIN, PER MD ASSESSMENT MUST BE DONE NOW. WILL ATTEMPT AGAIN.
--- NOTE | 2020-04-16 16:00 | NUR ---
AMBULATED PATIENT DOWN THE [place] ON ROOM AIR. O2 SATS BETWEEN 291 AND 293%, NO S/S OF DISTRESS NOTED. NOTIFIED DR. MIN AT THIS TIME.
--- NOTE | 2020-04-16 17:29 | NUR ---
NOTIFIED PATIENT THAT NURSE RECEIVED ORDER TO DC RAMSAY. PER PATIENT, ASK MD IF OK TO DC RAMSAY AROUND BEDTIME. ASKED DR. MIN, PER MD OK TO DC RAMSAY AT BEDTIME. PER , OK TO DC AT BEDTIME.
--- NOTE | 2020-04-16 19:10 | NUR ---
BEDSIDE SHIFT REPORT GIVEN TO ONCOMING NURSE. PATIENT IS IN STABLE CONDITION, NO ACUTE DISTRESS NOTED. CALL LIGHT WITHIN REACH. BED IN THE LOWEST POSITION.
--- NOTE | 2020-04-16 19:15 | NUR ---
Patient visited in room during nursing rounds. Patient alert and oriented x3. Ambulatory in room with walker and assistance prn. Pt has intermittent non-productive cough. On IV Lasix and IV antibiotic as scheduled. Kingsley in place for I&Os but will be taken out tonight per MD (Dr. Wheeler) order. Call capone within reach. Will monitor pt closely.
--- NOTE | 2020-04-16 20:15 | NUR ---
Kingsley catheter taken out as per MD order. Pt is due to void. Pt has worn diaper per preference.
[2020-04-17] VITALS (9 sets, daily range): BP systolic 108–145; BP diastolic 44–67
--- NOTE | 2020-04-17 | NUR ---
Patient has urinated at this time (post hoskins catheter removal).
[2020-04-17] MEDS: BENZONATATE 100 MG CAP PO SCH ×3 (05:20→21:10)
--- NOTE | 2020-04-17 06:18 | NUR ---
IM- progress note ROS: see below ROS: no f/c/s/N/V/D/QUINONES/skin rash/back pain/leg pain/confusion v/s revd PE tired appearing anicteric ns1s2 reduced bs; cough with deep inspiration Kingsley soft nt nd a&ox3; normal speech labs/meds revd A/P: Sepsis- IV merrem UTI- IV merrem JUSTINE vs CKD Pulmonary edema- IV lasix AECHF- IV lasix Hypothyroidism PAF- amio; AC per cardiology Prop: scd dispo: 5-18 continue antibiotics and diuretics; less SOB; still coughing; strict I/O 5- improving; 5-20 making progress; d/c planning; 5- check labs; Codey Wheeler MD, PHD.
--- NOTE | 2020-04-17 06:48 | NUR ---
Received bedside shift report from off going nurse. Patient is resting in bed, no acute distress noted. Call light within reach. Bed in the lowest position.
[2020-04-17 07:05] LABS: BASOPHILS % 0.6 % (0.0-1.0); EOSINOPHILS # (AUTO) 0.3 (0.0-0.4); EOSINOPHILS % 5.3 % (0.0-6.0); HEMATOCRIT 29.7 % (34.2-44.1); HEMOGLOBIN 8.7 g/dL (12.0-16.0); LYMPHOCYTES # (AUTO) 0.7 (1.0-3.2); LYMPHOCYTES % 11.6 % (18.0-39.1); MEAN CORPUSCULAR HEMOGLOBIN 22.4 pg (28-32); MEAN CORPUSCULAR HGB CONC 29.3 g/dL (31-35); MEAN CORPUSCULAR VOLUME 76.5 fL (81-99); MONOCYTES # (AUTO) 0.7 (0.2-0.8); MONOCYTES % 10.8 % (4.4-11.3); NEUTROPHILS # (AUTO) 4.4 (2.1-6.9); NEUTROPHILS % 71.1 % (38.7-80.0); PLATELET COUNT 234 x10e3/uL (140-360); RED BLOOD COUNT 3.88 x10e6/uL (3.6-5.1); RED CELL DISTRIBUTION WIDTH 18.3 % (11.7-14.4)
[2020-04-17 07:26] LABS: ANION GAP 17.6 mmol/L (8-16); CALCIUM 9.1 mg/dL (8.4-10.2); CREATININE, SERUM 1.33 mg/dL (0.57-1.11); POTASSIUM 3.6 mmol/L (3.5-5.1)
[2020-04-17] MEDS: FUROSEMIDE INJ 10 MG/ML 4 ML VIAL IV SCH ×2 (07:45→16:00)
[2020-04-17] MEDS: OLMESARTAN 20 MG TAB PO SCH (07:45)
[2020-04-17] MEDS: MEROPENEM 1GM 100 ML IV SCH ×2 (07:45→21:50)
[2020-04-17] MEDS: INSULIN REGULAR, HUMAN 100 UNIT/1 ML 3ML VIAL SQ SCH ×4 (07:45→21:00)
[2020-04-17] MEDS: PANTOPRAZOLE SOD 40 MG TABEC PO SCH (07:46)
[2020-04-17] MEDS: AMIODARONE HCL 200 MG TAB PO SCH (07:46)
[2020-04-17] MEDS: LEVOTHYROXINE SODIUM 112 MCG TAB PO SCH (07:46)
[2020-04-17 07:50] LABS: POLYCHROMASIA FEW
[2020-04-17] MEDS: ALBUTEROL/IPRATROPIUM 3 ML NEB NEB PRN ×3 (07:50→19:15)
[2020-04-17 07:51] LABS: ANISOCYTOSIS SLIGHT; HYPOCHROMASIA SLIGHT; PLATELET ESTIMATE ADEQUATE; PLATELET MORPHOLOGY COMMENT NORMAL; RBC MORPHOLOGY COMMENT NORMAL
[2020-04-17 08:02] LABS: MAGNESIUM 2.1 MG/DL (1.3-2.1); PHOSPHORUS 3.5 MG/DL (2.3-4.7)
[2020-04-17] MEDS: GUAIFENESIN/DEXTROMETHORPHAN LIQD 5 ML UDC PO SCH ×3 (08:55→21:10)
[2020-04-17] MEDS: ACETAMINOPHEN 325 MG TAB PO PRN (09:02)
--- NOTE | 2020-04-17 09:48 | NUR ---
Received order for home health. Spoke to pt at bedside. Pt states she has never had home health previously and to use any company in network with her insurance. Choice letter signed for [facility]. Signed copy placed in chart. Copy to pt with company's contact information. IMM letter discussed with pt. She verbalized understanding. Signed copy placed in chart. Copy to pt. Home health referral faxed to [facility] at [phone] / . Addendum: 04/18/20 at 1027 by Judy Hendrix CM Correction:
--- NOTE | 2020-04-17 12:12 | Diagnostic Imaging Report ---
X-ray chest frontal and lateral views Comparison: 04/12/2020 Indication: Cough, shortness of breath Findings: Central airways are unremarkable. Cardiomegaly. Atherosclerotic aorta. Left pleural effusion. Left lower lobe consolidation/atelectasis. Patchy opacity right upper lung. Redistribution of perivascular flow and prominence of interstitial markings. No acute changes in the regional bones. The thoracic spine is poorly visualized but mild thoracic kyphosis at the mid level is suspected raising the possibility of compression of the thoracic vertebrae. Upper abdomen unremarkable to the extent seen. Impression: Significant improvement in the appearance of the chest compared with the exam 5 days earlier. There is a left lower lobe pneumonia/atelectasis and a left pleural effusion. There is interstitial edema and patchy opacities in the right upper lung likely representing pulmonary edema. Signed by: Nino Mata MD on 04/17/2020 12:09 PM
--- NOTE | 2020-04-17 12:36 | NUR ---
Received call from [facility]. States they received clinicals and are ready to admit pt once she discharges from hospital
--- NOTE | 2020-04-17 18:57 | NUR ---
BEDSIDE SHIFT REPORT GIVEN TO ONCOMING NURSE. PATIENT IS IN STABLE CONDITION, NO ACUTE DISTRESS NOTED AT THIS TIME. CALL LIGHT WITHIN REACH. BED IN THE LOWEST POSITION.
--- NOTE | 2020-04-17 19:30 | NUR ---
Pt visited in room during nursing rounds. Patient alert and oriented x3. Ambulatory with use of walker and standby assist prn. Pt coughing intermittently and receiving cough meds as scheduled. Call capone within reach. Will monitor closely.
[2020-04-17] MEDS ORDERED: PROMETHAZINE 12.5MG/ NACL 0.9% 12.5 MG/50 ML BAG IV PRN (19:45)
[2020-04-17] MEDS ORDERED: SODIUM CHLORIDE 0.9% 250ML 250 ML ONE (19:49)
[2020-04-18 01:25] VITALS: BP 131/53
[2020-04-18] MEDS: BENZONATATE 100 MG CAP PO SCH (05:41)
[2020-04-18] MEDS: GUAIFENESIN/DEXTROMETHORPHAN LIQD 5 ML UDC PO SCH (05:41)
[2020-04-18 05:50] VITALS: BP 115/62
[2020-04-18] MEDS ORDERED: ZITHROMAX500 MG PO (06:33)
[2020-04-18] MEDS ORDERED: TESSALON PERLE100 MG PO (06:33)
[2020-04-18] MEDS ORDERED: FUROSEMIDE40 MG PO (06:33)
[2020-04-18] MEDS ORDERED: Guaifenesin/Dextromethorphan PO (06:33)
--- NOTE | 2020-04-18 06:36 | NUR ---
D/c SUmmary Principal Dx: Sepsis- IV merrem UTI- IV merrem Likely CKD3 Pulmonary edema- IV lasix AECHF- IV lasix Secondary Dx: Hypothyroidism PAF- amio; AC per cardiology Prop: scd dispo: 5-18 continue antibiotics and diuretics; less SOB; still coughing; strict I/O 5-19 improving; 5-20 making progress; d/c planning; 5-21 check labs; d/c home with PT stable d/c>35mins f/u pcp 2-4 days and cardiology 1 week Codey Wheeler MD, PHD.
--- NOTE | 2020-04-18 06:48 | NUR ---
RECEIVED BEDSIDE SHIFT REPORT FROM OFF GOING NURSE. PATIENT IS RESTING IN BED, NO S/S OF DISTRESS NOTED. CALL LIGHT WITHIN REACH. BED IN THE LOWEST POSITION.
[2020-04-18] MEDS: ALBUTEROL/IPRATROPIUM 3 ML NEB NEB PRN (07:18)
[2020-04-18 07:50] VITALS: BP 113/69
[2020-04-18 07:51] VITALS: BP 113/69
[2020-04-18] MEDS: INSULIN REGULAR, HUMAN 100 UNIT/1 ML 3ML VIAL SQ SCH (08:05)
[2020-04-18] MEDS: FUROSEMIDE INJ 10 MG/ML 4 ML VIAL IV SCH (08:11)
[2020-04-18] MEDS: MEROPENEM 1GM 100 ML IV SCH (08:11)
[2020-04-18] MEDS: PANTOPRAZOLE SOD 40 MG TABEC PO SCH (08:12)
[2020-04-18] MEDS: OLMESARTAN 20 MG TAB PO SCH (08:12)
[2020-04-18] MEDS: LEVOTHYROXINE SODIUM 112 MCG TAB PO SCH (08:12)
[2020-04-18] MEDS: AMIODARONE HCL 200 MG TAB PO SCH (08:12)
--- NOTE | 2020-04-18 10:28 | NUR ---
Called and spoke to Sebastian at [facility]. Informed her of discharge for today. Will have pt put on schedule to be seen.
--- NOTE | 2020-04-18 11:00 | NUR ---
Received discharge order from Dr. Wheeler, patient is in stable condition. IV line to right antecubital discontinued with tip intact, pressure applied to site, no bleeding noted. Discharge teaching provided to patient and granddaughter Bryanna Stock. Discharge folder with paperwork and prescriptions on hand. Discharge paperwork signed by granddaughter per patient's request. Patient accompanied to private auto via wheelchair by staff.
== END 2020-04-18 11:00 | disposition home health service (06) | DRG 871 ==
LOC: ER 12:09 → ERHOLD 15:46 → IMCU 18:12 → MED/SURG3 18:44
PROVIDERS: ADMIT Internal Medicine; ATTEND Internal Medicine
DX: A41.9 Sepsis, unspecified organism (principal); I50.43 Acute on chronic combined systolic (congestive) and diastolic (congestive) heart failure; J18.9 Pneumonia, unspecified organism; N17.9 Acute kidney failure, unspecified; I13.0 Hypertensive heart and chronic kidney disease with heart failure and stage 1 through stage 4 chronic kidney disease, or unspecified chronic kidney disease; I48.0 Paroxysmal atrial fibrillation; Z79.01 Long term (current) use of anticoagulants; E03.9 Hypothyroidism, unspecified; Z86.73 Personal history of transient ischemic attack (TIA), and cerebral infarction without residual deficits; Z11.59 Encounter for screening for other viral diseases; N18.9 Chronic kidney disease, unspecified; E11.22 Type 2 diabetes mellitus with diabetic chronic kidney disease; Z79.4 Long term (current) use of insulin
CPT/HCPCS: 36415; 70450; 71045; 71046; 72125; 72170; 80048; 80053; 81001; 82550; 82553; 82948; 83605; 83735; 83880; 84100; 84484; 85025; 87040; 87635; 93005; 93880; 94640; 97139; 99284; J1817; J1940; J2550; J7050

== ENCOUNTER 2020-05-16 13:01 | Inpatient (IN) | payer MEDICARE, OTHER ==
[~2020-05-16] VITALS: Ht 167.6 cm; Wt 81.6 kg
[~2020-05-16 13:01] MED LIST changes: -AMIODARONE HCL200 MG; +AMIODARONE HCL200 MG PO; -COQ-10100 MG; +COQ-10100 MG PO; -CRESTOR10 MG; +CRESTOR10 MG PO; +Guaifenesin/Dextromethorphan PO; +TESSALON PERLE100 MG PO; -XARELTO20 MG; +XARELTO20 MG PO; +ZITHROMAX500 MG PO
--- NOTE | 2020-05-16 14:02 | Diagnostic Imaging Report ---
EXAMINATION: CHEST SINGLE (PORTABLE) INDICATION: Shortness of breath COMPARISON: Chest radiograph 04/17/2020 and 04/12/2020 FINDINGS: LINES/TUBES:None LUNGS:The lungs are well-inflated. There is left basilar opacity partially silhouetting the left julián diaphragm. PLEURA:No pleural effusion or pneumothorax. MEDIASTINUM:The cardiomediastinal silhouette appears normal in size and shape. Atherosclerotic calcifications of the thoracic aorta. BONES/SOFT TISSUES:No acute osseous injury. ABDOMEN:No free air under the diaphragm. IMPRESSION: Left basilar patchy opacity appears unchanged from 04/17/2020 and improved from 04/12/2020, likely representing subsegmental atelectasis or alternatively residual radiographic findings of aspiration or pneumonia (resolution of radiographic findings can be delayed compared to clinical improvement). Signed by: Boris Olmedo MD on 05/16/2020 1:59 PM
[2020-05-16 14:16] LABS: BASOPHILS # (AUTO) 0.1 (0.0-0.1); BASOPHILS % 0.5 % (0.0-1.0); EOSINOPHILS % 0.3 % (0.0-6.0); HEMATOCRIT 36.7 % (34.2-44.1); HEMOGLOBIN 10.6 g/dL (12.0-16.0); LYMPHOCYTES # (AUTO) 1.4 (1.0-3.2); LYMPHOCYTES % 14.6 % (18.0-39.1); MEAN CORPUSCULAR HEMOGLOBIN 21.7 pg (28-32); MEAN CORPUSCULAR HGB CONC 28.9 g/dL (31-35); MEAN CORPUSCULAR VOLUME 75.2 fL (81-99); MONOCYTES # (AUTO) 0.8 (0.2-0.8); MONOCYTES % 8.4 % (4.4-11.3); NEUTROPHILS % 75.8 % (38.7-80.0); PLATELET COUNT 296 x10e3/uL (140-360); RED BLOOD COUNT 4.88 x10e6/uL (3.6-5.1); RED CELL DISTRIBUTION WIDTH 17.8 % (11.7-14.4)
[2020-05-16 14:35] LABS: ALBUMIN 3.3 g/dL (3.5-5.0); ALBUMIN/GLOBULIN RATIO 0.7 (0.8-2.0); ANION GAP 20.6 mmol/L (8-16); CALCIUM 9.7 mg/dL (8.4-10.2); CREATININE, SERUM 2.7 mg/dL (0.57-1.11)
[2020-05-16 14:43] LABS: CREATINE KINASE MB 1.1 ng/mL (0-5.0)
[2020-05-16 14:51] LABS: POTASSIUM 2.6 mmol/L (3.5-5.1)
--- NOTE | 2020-05-16 16:47 | Diagnostic Imaging Report ---
EXAM: CT Chest WITHOUT intravenous contrast 05/16/2020 3:20 PM INDICATION: Shortness of breath COMPARISON: Chest radiograph of earlier the same day and of 04/17/2020 and 04/12/2020 TECHNIQUE: Chest was scanned utilizing a multidetector helical scanner from the lung apex through the level of the adrenal glands without administration of IV contrast. Coronal and sagittal reformations were obtained. Routine protocol was performed. IV CONTRAST: None RADIATION DOSE: Total DLP: 480 mGy*cm. Dose modulation, iterative reconstruction, and/or weight based adjustment of the mA/kV was utilized to reduce the radiation dose to as low as reasonably achievable. COMPLICATIONS: None FINDINGS: LINES/ TUBES: None. LUNGS AND AIRWAYS: The central airways are patent. 7.0 x 4.3 x 9.5 cm posterior left lower lobe consolidation with air bronchograms. This corresponds with the left basilar opacity seen on chest radiograph. Prominently peripheral increased interstitial opacities with areas of groundglass opacity. PLEURA: The pleural spaces are clear. HEART AND MEDIASTINUM: The thyroid gland is normal. No supraclavicular or axillary lymphadenopathy. Mildly enlarged mediastinal lymph nodes measure up to 1.7 x 1.1 cm (axial image 55). No definite hilar lymphadenopathy. The heart is not enlarged. No pericardial effusion. Atherosclerotic calcifications involve the thoracic aorta, coronary arteries, and proximal great vessels. UPPER ABDOMEN: Small sliding hiatal hernia. No acute findings in the upper abdomen. BONES: The visualized bony thorax is within normal limits. SOFT TISSUES: Unremarkable. IMPRESSION: 7.0 x 4.3 x 9.5 cm posterior left lower lobe consolidation with air bronchograms. Given that the corresponding opacity on chest radiograph appears to be improving over time, this more likely represents an infectious/inflammatory process. Repeat chest CT in 6-8 weeks is recommended to assess for stability/resolution and to exclude underlying malignancy. Scattered predominantly peripheral increased interstitial opacities likely reflect component of underlying interstitial lung disease in an NSIP pattern. Signed by: Boris Olmedo MD on 05/16/2020 4:44 PM
--- NOTE | 2020-05-16 16:50 | NUR ---
PATIENT'S SON - [facility] [phone]
[2020-05-16] MEDS ORDERED: POTASSIUM CHLORIDE 20 MEQ TAB CR PO STA (17:16)
--- NOTE | 2020-05-16 17:37 | Emergency Department Note ---
History of Present Illnes History of Present Illness Chief Complaint: COVID PUI History of Present Illness This is a 89 year old female arrived to the ED with complaints of left-sided chest pain and shortness of breath. Patient states symptoms have been present for several days now worse. Historian: Patient Arrival Mode: Car Onset (how long ago): day(s) Timing of current episode: intermittent Progression: waxing and waning Associated symptoms: Reports nausea/vomiting Treatments prior to arrival: none Past Medical/Family History Physician Review I have reviewed the patient's past medical and family history. Any updates have been documented here. Past Medical History Recent Fever: No Clinical Suspicion of Infectio: Yes New/Unexplained Change in Ment: No Past Medical History: Hypertension, A-Fib Past Surgical History: Cholecysctectomy, Hysterectomy Social History Smoking Cessation: Never Smoker Counseling Performed: Yes Alcohol Use: None Any Illegal Drug Use: No TB Exposure/Symptoms: No Physically hurt or threatened: No Family History Family history of heart diseas: No Other Last Tetanus: UNKNOWN Any Pre-Existing Lines (PICC,: No Is patient up to date on immun: Yes Last Flu: 2019 Last Pneumovax: 2019 Review of Systems Review of Systems Constitutional: Reports no symptoms EENTM: Reports no symptoms Cardiovascular: Reports as per HPI, Reports chest pain Respiratory: Reports dyspnea Gastrointestinal: Reports no symptoms Genitourinary: Reports no symptoms Musculoskeletal: Reports no symptoms Integumentary: Reports no symptoms Neurological: Reports no symptoms Psychological: Reports no symptoms Endocrine: Reports no symptoms Hematological/Lymphatic: Reports no symptoms Physical Exam Related Data Allergies: Coded Allergies: Penicillins (Verified Allergy, Unknown, 05/16/20) cefdinir (Verified Allergy, Unknown, 05/16/20) levofloxacin (Verified Allergy, Unknown, 05/16/20) meperidine (Verified Allergy, Unknown, 05/16/20) Uncoded Allergies: BIOXIN (Allergy, Unknown, 08/14/19) Triage Vital Signs Vital Signs Date Time Temp Pulse Resp B/P (MAP) Pulse Ox O2 Delivery O2 Flow Rate FiO2 05/16/20 13:19 97.8 68 26 126/70 97 Vital signs reviewed: Yes Physical Exam CONSTITUTIONAL Constitutional: Present well-developed, Present well-nourished HENT HENT: Present normocephalic, Present atraumatic, Present oropharynx clear/moist, Present nose normal HENT L/R: Present left ext ear normal, Present right ext ear normal EYES Eyes: Reports PERRL, Reports conjunctivae normal NECK Neck: Present ROM normal PULMONARY Pulmonary: Present effort normal, Present respiratory distress CARDIOVASCULAR Cardiovascular: Present regular rhythm, Present heart sounds normal, Present capillary refill normal, Present normal rate GASTROINTESTINAL Abdominal: Present soft, Present nontender, Present bowel sounds normal GENITOURINARY Genitourinary: Present exam deferred SKIN Skin: Present warm, Present dry MUSCULOSKELETAL Musculoskeletal: Present ROM normal NEUROLOGICAL Neurological: Present alert, Present oriented x 3, Present no gross motor or sensory deficits PSYCHOLOGICAL Psychological: Present mood/affect normal, Present judgement normal Results Laboratory Result Diagram: 05/16/20 1359 05/16/20 1359 Laboratory Laboratory Tests Test 05/16/20 13:59 White Blood Count 9.30 x10e3/uL (4.8-10.8) Red Blood Count 4.88 x10e6/uL (3.6-5.1) Hemoglobin 10.6 g/dL (12.0-16.0) Hematocrit 36.7 % (34.2-44.1) Mean Corpuscular Volume 75.2 fL (81-99) Mean Corpuscular Hemoglobin 21.7 pg (28-32) Mean Corpuscular Hemoglobin Concent 28.9 g/dL (31-35) Red Cell Distribution Width 17.8 % (11.7-14.4) Platelet Count 296 x10e3/uL (140-360) Neutrophils (%) (Auto) 75.8 % (38.7-80.0) Lymphocytes (%) (Auto) 14.6 % (18.0-39.1) Monocytes (%) (Auto) 8.4 % (4.4-11.3) Eosinophils (%) (Auto) 0.3 % (0.0-6.0) Basophils (%) (Auto) 0.5 % (0.0-1.0) Neutrophils # (Auto) 7.0 (2.1-6.9) Lymphocytes # (Auto) 1.4 (1.0-3.2) Monocytes # (Auto) 0.8 (0.2-0.8) Eosinophils # (Auto) 0.0 (0.0-0.4) Basophils # (Auto) 0.1 (0.0-0.1) Absolute Immature Granulocyte (auto 0.04 x10e3/uL (0-0.1) Sodium Level 136 mmol/L (136-145) Potassium Level 2.6 mmol/L (3.5-5.1) Chloride Level 91 mmol/L (98-107) Carbon Dioxide Level 27 mmol/L (22-29) Anion Gap 20.6 mmol/L (8-16) Blood Urea Nitrogen 24 mg/dL (7-26) Creatinine 2.70 mg/dL (0.57-1.11) Estimat Glomerular Filtration Rate 17 ML/MIN (60-) BUN/Creatinine Ratio 9 (6-25) Glucose Level 150 mg/dL (74-118) Calcium Level 9.7 mg/dL (8.4-10.2) Total Bilirubin 0.4 mg/dL (0.2-1.2) Aspartate Amino Transf (AST/SGOT) 41 IU/L (5-34) Alanine Aminotransferase (ALT/SGPT) 32 IU/L (0-55) Alkaline Phosphatase 78 IU/L (40-150) Creatine Kinase 53 IU/L (29-168) Creatine Kinase MB 1.10 ng/mL (0-5.0) Troponin I 0.055 ng/mL (0-0.300) B-Type Natriuretic Peptide 151.6 pg/mL (0-100) Total Protein 7.9 g/dL (6.5-8.1) Albumin 3.3 g/dL (3.5-5.0) Globulin 4.6 g/dL (2.3-3.5) Albumin/Globulin Ratio 0.7 (0.8-2.0) Lab results reviewed: Yes Imaging Imaging results reviewed: Yes Impressions 89-year-old female arrived to the ED with complaints of dyspnea and intermittent chest pain. Patient admits to history of this in the past. Patient is tachypnea, evaluation, however, afebrile and oxygen saturations 99%. Low suspicion of COVID 19 given otherwise well-appearing patient. Procedures 12 Lead ECG Interpretation ECG Interpretation : ECG: ECG 1 Prior ECG tracings: reviewed Rhythm: atrial fibrillation Rate: normal Conduction: right bundle branch block Clinical Impression: normal ECG Assessment & Plan Medical Decision Making MDM 89 year female arrived to the ED with non-specific complaints of dyspnea, tachyp cornel noted on arrival and concerning given her age. No infectious etiology noted at time of admission. Patient also complaint of atypical chest pain. Patient admitted for ACS rule out as well as further workup of her dyspnea. Pulmonary consult did at time of admission. Absolutely no bacterial cause of illness noted at time of admission. Assessment & Plan Final Impression: (1) Shortness of breath (2) Chest pain Depart Disposition: ADMITTED Last Vital Signs Date Time Temp Pulse Resp B/P (MAP) Pulse Ox O2 Delivery O2 Flow Rate FiO2 05/16/20 14:14 98.3 84 19 158/67 100 Home Meds Active Scripts Azithromycin (ZITHROMAX) 500 Mg Tablet, 500 MG PO DAILY, #5 Prov:ALEXUS MIN MD 04/18/20 Furosemide (FUROSEMIDE) 40 Mg Tablet, 40 MG PO Q12H for 7 Days, #30 TAB Prov:ALEXUS MIN MD 04/18/20 [Guaifenesin/Dextromethorphan] 10 ML LIQD No Conflict Check, 10 ML PO Q8H for 10 Days Prov:ALEXUS MIN MD 04/18/20 Benzonatate (TESSALON PERLE) 100 Mg Capsule, 100 MG PO Q8HR for 10 Days Prov:ALEXUS MIN MD 04/18/20 Reported Medications Ubidecarenone (COQ-10) 100 Mg Capsule 08/14/19 Amiodarone Hcl (AMIODARONE HCL) 200 Mg Tablet 08/14/19 Olmesartan Medoxomil (BENICAR) 20 Mg Tablet, 40 MG PO DAILY, #30 TAB 08/14/19 Rivaroxaban (XARELTO) 20 Mg Tablet, 15 08/14/19 Metformin Hcl (METFORMIN HCL) 500 Mg Tablet, 500 MG PO BID, #60 TAB 08/14/19 Amlodipine Besylate (AMLODIPINE BESYLATE) 5 Mg Tablet, 5 MG PO DAILY, #30 TAB 08/14/19 Rosuvastatin Calcium (CRESTOR) 10 Mg Tab, 20 THERAPEUTICALLY SUBSTITUTED WITH SIMVASTATIN 40MG 08/14/19 Levothyroxine Sodium (LEVOTHYROXINE SODIUM) 112 Mcg Tablet, 112 MCG PO DAILY, #30 TAB 08/14/19 Omeprazole (OMEPRAZOLE) 40 Mg Capsule., 20 08/14/19 JOSE MAN, May 16, 2020 17:37
--- NOTE | 2020-05-16 18:00 | NUR ---
The pt arrived from ER via stretcher and reports she needs a snack as she has had nothing to eat since breakfast. She states she is diabetic. The pt. was provided a sandwich, pudding and orange juice.
[2020-05-16 20:00] VITALS: BP 124/60
[2020-05-16 20:54] VITALS: BP 124/60
[2020-05-16] MEDS ORDERED: GUAIFENESIN/DEXTROMETHORPHAN LIQD 5 ML UDC NG PRN (21:30)
[2020-05-16] MEDS: GUAIFENESIN/DEXTROMETHORPHAN LIQD 5 ML UDC PO SCH (21:56)
[2020-05-16 22:45] LABS: CREATINE KINASE MB 1.1 ng/mL (0-5.0)
[2020-05-17] VITALS (7 sets, daily range): BP systolic 101–154; BP diastolic 43–64
[2020-05-17 06:37] LABS: CREATINE KINASE MB 0.5 ng/mL (0-5.0)
[2020-05-17] MEDS: GUAIFENESIN/DEXTROMETHORPHAN LIQD 5 ML UDC PO SCH ×3 (06:48→20:53)
--- NOTE | 2020-05-17 07:30 | NUR ---
Bedside rounding has been completed and the pt. denies issues at this time. Reports pain in the left breast only when she coughs.
[2020-05-17] MEDS ORDERED: ALBUTEROL/IPRATROPIUM 3 ML NEB NEB PRN (10:00)
[2020-05-17] MEDS ORDERED: ACETAMINOPHEN 325 MG TAB PO PRN (10:00)
[2020-05-17] MEDS ORDERED: ONDANSETRON HCL INJ 2MG/ML 2ML 2 MG/ML VIAL IV PRN (10:00)
[2020-05-17] MEDS ORDERED: DOCUSATE SODIUM 100 MG CAP PO PRN (10:00)
[2020-05-17] MEDS ORDERED: ZOLPIDEM TARTRATE 5 MG TAB PO PRN (10:00)
--- NOTE | 2020-05-17 10:01 | NUR ---
H&P cc: cp HPI: 89yoF, PCP , developed worsening cough, which led to left rib pain with each coughing episode; No dizziness/fever/N/V/D. PMH: PAF, hypothyroidism, HTN, CVA 2004, peripheral edema, UTI, sepsis, pulmonary edema, CKD3 due to DM2 PSHx: hysterectomy, cholecystectomy, cataract, nasal Allergies; see emr FH/SH; ; no cigs meds; see MAR ROS: no f/c/s/N/V/D/QUINONES/skin rash/back pain/leg pain/confusion v/s revd PE tired appearing anicteric ns1s2 COUGH WITH DEEP INSPIRATION; soft nt nd a&ox3; normal speech FLAT AFFECT labs/meds revd A/P: Musculoskeletal chest pain- due to coughing; trend enzymes Left PNA- iv abx; mass? pulm consult. JUSTINE- hold ARB and diuretics Hypokalemia- recheck andreplace CHF- monitor fluid status Hypothyroidism-synthroid PAF- amio/AC CKD3 due to DM2- hba1c/lipids Prop: scd dispo: pulm consult; start IV abx; Codey Wheeler MD, PHD.
[2020-05-17] MEDS: AZITHROMYCIN 500MG/NS 250 ML 250 ML IV SCH (11:54)
[2020-05-17] MEDS ORDERED: AZITHROMYCIN 250MG/NS 100 ML 100 ML IV SCH (12:00)
[2020-05-17] MEDS ORDERED: HYDROCODONE/APAP 5MG-325MG TAB PO PRN (13:00)
--- NOTE | 2020-05-17 13:33 | Consultation ---
DATE OF CONSULTATION: Pulmonary Critical Care Consultation CHIEF COMPLAINT: Left-sided chest pain and cough. HISTORY OF PRESENT ILLNESS: The patient is an 89-year-old woman. She required hospitalization at [facility] in late March of this year for a left lower lobe pneumonia. She received antibiotics. She had some clinical improvement. She now returns stating that she has pain in the left side in the lower lateral thorax with deep inspiration and coughing. She also notes worsening cough over the past several days with some phlegm production. PAST MEDICAL HISTORY: 1. Atrial fibrillation. 2. Hypothyroidism. 3. Chronic systolic congestive heart failure. 4. Diabetes. PAST SURGICAL HISTORY: 1. Status post cholecystectomy. 2. Status post hysterectomy. SOCIAL HISTORY: The patient is not a smoker or drinker. FAMILY HISTORY: There is a family history of coronary artery disease. ALLERGIES: THE PATIENT IS ALLERGIC TO LEVAQUIN, PENICILLINS AND CEPHALOSPORINS. REVIEW OF SYSTEMS: The patient is afebrile. The patient does note some nasal drainage. She has some clearing of her throat. She does not complain of neck pain. She has pain in her left lower thorax with coughing and deep inspiration. She reports some mild dyspnea. She has no abdominal pain. There is no nausea or vomiting. She has no leg edema. PHYSICAL EXAMINATION: VITAL SIGNS: The patient is afebrile. The blood pressure is 113/61, saturation is 99%. HEENT: Shows no facial swelling or erythema. The oropharynx is normal. LYMPHATIC: Shows no submandibular, cervical or supraclavicular adenopathy. CARDIAC: Reveals regular rate and rhythm with normal S1 and S2. LUNGS: Auscultation of lungs shows decreased breath sounds at the bases. There is no wheezing. There is some tenderness in the lateral thorax on the left side. ABDOMEN: Soft, nontender. There is no rebound or guarding. EXTREMITIES: Shows no leg edema or calf tenderness. There is no cyanosis or clubbing. SKIN: Shows no rashes. NEUROLOGICAL: Shows no focal abnormalities. LABORATORY DATA: White blood cell count is 9.3. The hemoglobin is 10.6. The platelet count is 296. Potassium is 2.6, and the BUN to creatinine ratio is 24 to 2.7. Albumin is 3.3. RADIOGRAPHIC DATA: Chest CT shows a consolidation in the left lower lobe that is decreasing in size. There are also some scattered opacities in the right upper lobe and left upper lobe. IMPRESSION: 1. Left-sided pleuritic chest pain, possibly related to a rib injury. 2. Resolving left lower lobe pneumonia. 3. Atrial fibrillation. 4. Chronic systolic congestive heart failure. 5. Acute on chronic renal failure. 6. Hypokalemia. PLAN: 1. Pain control with low-dose Mchenry. 2. Cough suppressants. 3. Treat postnasal drainage, which may be contributing to cough. 4. Left-sided rib series. 5. Continue current cardiac regimen. 6. Gentle hydration with monitoring of the BUN and creatinine. MD WILLIS Ibarra/MODL /[id number]
--- NOTE | 2020-05-17 13:35 | NUR ---
The pt. is out of the room for rib xray.
[2020-05-17] MEDS ORDERED: SODIUM CHLORIDE 0.9% IV SCH (14:00)
[2020-05-17] MEDS ORDERED: AZTREONAM IV SCH (14:00)
--- NOTE | 2020-05-17 14:09 | Diagnostic Imaging Report ---
EXAM: Abdomen Radiograph 1 View(s) INDICATION: ^Left lateral rib tenderness ^[id number] ^[id number] COMPARISON: CT 05/16/2020 FINDINGS: No acute displaced rib fracture is identified. Ill-defined left lower lung opacity. Subtle groundglass opacities in the bilateral upper lobes. Normal heart size. Unremarkable pulmonary vasculature. No pleural effusion. IMPRESSION: No acute rib fracture. Left lower lobe airspace opacity correlates with the consolidation seen on recent CT scan. Signed by: Clarence Harrison MD on 05/17/2020 2:06 PM
[2020-05-17 15:00] LABS: CHOL/HDL RATIO 3.1 (3.0-3.6)
[2020-05-17] MEDS: BENZONATATE 100 MG CAP PO SCH ×2 (15:00→20:53)
[2020-05-17 16:02] LABS: CREATINE KINASE MB 0.5 ng/mL (0-5.0)
[2020-05-17] MEDS: FLUTICASONE PROPIONATE NASAL SPRAY NS SCH (17:00)
[2020-05-17] MEDS: SIMVASTATIN 20 MG TAB PO SCH (20:53)
[2020-05-17] MEDS: IPRATROPIUM BROMIDE 0.03% NASAL SPRAY 30ML SCH (21:00)
[2020-05-18] VITALS (8 sets, daily range): BP systolic 107–150; BP diastolic 43–84
[2020-05-18] MEDS: GUAIFENESIN/DEXTROMETHORPHAN LIQD 5 ML UDC PO SCH (06:11)
[2020-05-18] MEDS: LEVOTHYROXINE SODIUM 112 MCG TAB PO SCH (06:11)
[2020-05-18 06:40] LABS: ALBUMIN 2.8 g/dL (3.5-5.0); ALBUMIN/GLOBULIN RATIO 0.7 (0.8-2.0); ANION GAP 13.1 mmol/L (8-16); CALCIUM 9.1 mg/dL (8.4-10.2); CREATININE, SERUM 2.06 mg/dL (0.57-1.11); POTASSIUM 3.1 mmol/L (3.5-5.1)
[2020-05-18] MEDS: PANTOPRAZOLE SOD 40 MG TABEC PO SCH (08:06)
[2020-05-18] MEDS: IPRATROPIUM BROMIDE 0.03% NASAL SPRAY 30ML SCH ×2 (09:00→20:24)
[2020-05-18] MEDS: AMIODARONE HCL 200 MG TAB PO SCH (09:03)
[2020-05-18] MEDS: FLUTICASONE PROPIONATE NASAL SPRAY NS SCH ×2 (09:03→16:39)
[2020-05-18] MEDS: RIVAROXABAN 20 MG TABLET PO SCH (09:03)
[2020-05-18] MEDS: BENZONATATE 100 MG CAP PO SCH (09:03)
[2020-05-18] MEDS: AZITHROMYCIN 500MG/NS 250 ML 250 ML IV SCH (11:32)
--- NOTE | 2020-05-18 12:00 | NUR ---
Handoff report to nurse Leidy POMPA made aware patient has ordered a new antibiotic Azactam, and Azithromycin infusing at the moment. Nurse verbalized understanding.
[2020-05-18] MEDS ORDERED: DEXTROSE 50% SYRINGE 50 ML IV PRN (13:45)
[2020-05-18] MEDS ORDERED: METHYLPREDNISOLONE SOD SUCC 40 MG/ML VIAL 1ML IV ONE (14:30)
--- NOTE | 2020-05-18 14:32 | Progress Note ---
DATE: SUBJECTIVE: The patient's x-ray showed no rib fractures. She still has some cough and some pain on the left side with coughing. PHYSICAL EXAMINATION: VITAL SIGNS: The patient is afebrile. The blood pressure is 120/57, saturation is 99%, and the pulse is 78. HEENT: Shows no facial swelling or erythema. Oropharynx is normal. LYMPHATIC: Shows no submandibular, cervical, or supraclavicular adenopathy. CARDIAC: Reveals regular rate and rhythm with normal S1 and S2. LUNGS: Auscultation of lungs reveals decreased breath sounds at the left base. ABDOMEN: Soft and nontender. There is no rebound or guarding. EXTREMITIES: Shows no leg edema or calf tenderness. There is no cyanosis or clubbing. LABORATORY DATA: The BUN to creatinine ratio is 21 to 2.06, and the potassium is 3.1. Other electrolytes are within normal limits. The white blood cell count is 9.3 and the hemoglobin is 10.6. The platelet count is 296. IMPRESSION: 1. Continued pleuritic chest discomfort following a left lower lobe pneumonia. 2. Unbdx-cu-nljfpwo kidney injury. 3. Atrial fibrillation. 4. Hyperglycemia. 5. Chronic systolic congestive heart failure. PLAN: 1. Solu-Medrol x1. 2. Monitor blood sugars closely and give insulin as needed. 3. Continue nasal sprays for postnasal drainage. 4. Cough suppressant with codeine. 5. Continue to monitor renal function. MD WILLIS Ibarra/[place] /[id number]
--- NOTE | 2020-05-18 15:09 | NUR ---
IM- progress note O/N see below ROS: no f/c/s/N/V/D/QUINONES/skin rash/back pain/leg pain/confusion v/s revd PE tired appearing anicteric ns1s2 COUGH WITH DEEP INSPIRATION; soft nt nd a&ox3; normal speech FLAT AFFECT labs/meds revd A/P: Musculoskeletal chest pain- due to coughing; trend enzymes Left PNA- iv abx; mass? pulm consult. 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
[2020-05-18] MEDS: GUAIFENESIN/CODEINE 10 ML CUP PO PRN ×2 (15:32→20:24)
[2020-05-18] MEDS: AZTREONAM 1 GM/NS 50 ML 50 ML IV SCH ×2 (15:32→21:14)
[2020-05-18] MEDS: INSULIN REGULAR, HUMAN 100 UNIT/1 ML 3ML VIAL SQ SCH ×2 (16:38→20:34)
[2020-05-18] MEDS ORDERED: POTASSIUM CHLORIDE 20 MEQ TAB CR PO STA (19:37)
--- NOTE | 2020-05-18 19:39 | NUR ---
Informed Dr Liam sow K-3.1, received new order from Dr Wheeler for potassium replacement
[2020-05-18] MEDS: SIMVASTATIN 20 MG TAB PO SCH (20:24)
[2020-05-18] MEDS ORDERED: SODIUM CHLORIDE 0.9% 250ML 250 ML ONE (20:52)
[2020-05-19] VITALS (8 sets, daily range): BP systolic 107–143; BP diastolic 50–79
[2020-05-19] MEDS: GUAIFENESIN/CODEINE 10 ML CUP PO PRN ×3 (01:14→23:28)
[2020-05-19] MEDS: LEVOTHYROXINE SODIUM 112 MCG TAB PO SCH (05:00)
[2020-05-19] MEDS: AZTREONAM 1 GM/NS 50 ML 50 ML IV SCH ×3 (05:00→21:31)
[2020-05-19 05:11] LABS: BASOPHILS % 0.2 % (0.0-1.0); HEMATOCRIT 30.3 % (34.2-44.1); HEMOGLOBIN 8.8 g/dL (12.0-16.0); LYMPHOCYTES # (AUTO) 0.7 (1.0-3.2); LYMPHOCYTES % 10.6 % (18.0-39.1); MEAN CORPUSCULAR HEMOGLOBIN 21.8 pg (28-32); MEAN CORPUSCULAR VOLUME 75.2 fL (81-99); MONOCYTES # (AUTO) 0.2 (0.2-0.8); MONOCYTES % 2.6 % (4.4-11.3); NEUTROPHILS # (AUTO) 5.7 (2.1-6.9); PLATELET COUNT 212 x10e3/uL (140-360); RED BLOOD COUNT 4.03 x10e6/uL (3.6-5.1); RED CELL DISTRIBUTION WIDTH 17.8 % (11.7-14.4)
[2020-05-19 05:54] LABS: ALBUMIN 2.6 g/dL (3.5-5.0); ALBUMIN/GLOBULIN RATIO 0.7 (0.8-2.0); ANION GAP 13.4 mmol/L (8-16); CALCIUM 9.1 mg/dL (8.4-10.2); CREATININE, SERUM 1.84 mg/dL (0.57-1.11); POTASSIUM 4.4 mmol/L (3.5-5.1)
--- NOTE | 2020-05-19 07:00 | NUR ---
RCD PT AT BED PT IS ALERT AND ORIENTED PT RESTING ON BED IV PATENT BY SALINE FLUSH BED LOW AND LOCKED CALL LIGHT IN REACH
[2020-05-19] MEDS: INSULIN REGULAR, HUMAN 100 UNIT/1 ML 3ML VIAL SQ SCH ×4 (07:30→21:21)
[2020-05-19] MEDS: PANTOPRAZOLE SOD 40 MG TABEC PO SCH (07:30)
[2020-05-19] MEDS: AMIODARONE HCL 200 MG TAB PO SCH (09:00)
[2020-05-19] MEDS: IPRATROPIUM BROMIDE 0.03% NASAL SPRAY 30ML SCH ×2 (09:00→21:00)
[2020-05-19] MEDS: RIVAROXABAN 20 MG TABLET PO SCH (09:00)
[2020-05-19] MEDS: FLUTICASONE PROPIONATE NASAL SPRAY NS SCH ×2 (09:00→16:23)
[2020-05-19] MEDS: AZITHROMYCIN 500MG/NS 250 ML 250 ML IV SCH (10:30)
--- NOTE | 2020-05-19 14:00 | NUR ---
Pt asked about provider services. CM gave pt senior resource guide and brochures for a few providers. Pt also signed choice letter for [facility]. Signed copy placed in chart. Copy to pt.
--- NOTE | 2020-05-19 14:42 | Progress Note ---
DATE: SUBJECTIVE: The patient feels better after receiving Solu-Medrol. She has less pain on her side. She has less cough, although she still has some cough. She has some postnasal drainage. She clears her throat frequently. PHYSICAL EXAMINATION: VITAL SIGNS: The blood pressure is 126/58 and saturation is 98%. HEENT: Shows no facial swelling or erythema. CARDIAC: Reveals regular rate and rhythm with normal S1 and S2. LUNGS: Auscultation of lungs reveals rhonchorous breath sounds bilaterally. There is no wheezing. ABDOMEN: Soft and nontender. There is no rebound or guarding. EXTREMITIES: Shows no leg edema or calf tenderness. There is no cyanosis or clubbing. SKIN: Shows no rashes. LABORATORY DATA: BUN to creatinine ratio is 21 to 1.84 and other electrolytes are within normal limits. The blood sugar is 244. Hemoglobin is 8.8 and white blood cell count is normal. IMPRESSION: 1. Resolving left lower lobe pneumonia. 2. Sinusitis. 3. Qboob-ze-eeieiup kidney injury. 4. Chronic systolic congestive heart failure. PLAN: 1. Continue to monitor and control blood sugars. 2. Continue nasal sprays. 3. Cough suppressant with codeine. 4. Okay for discharge home today. Corby Snell MD [facility]/[place] /[id number]
[2020-05-19] MEDS ORDERED: ONDANSETRON HCL 4 MG ORAL DISINTEGRATING TAB PO PRN (14:45)
--- NOTE | 2020-05-19 16:02 | NUR ---
Received order for home health. Pt already on service with [facility]. CM called and confirmed with Lisbeth in office. Resumption order and clinicals faxed to [facility] at [phone] / .
--- NOTE | 2020-05-19 18:38 | NUR ---
PT RESTING ON BED BED SIDE REPORT GIVEN TO ONCOMING NURSE
--- NOTE | 2020-05-19 19:24 | NUR ---
RECEIVED REPORT FROM OVIDIO NURSE.
[2020-05-19] MEDS: SIMVASTATIN 20 MG TAB PO SCH (21:18)
[2020-05-20 01:03] VITALS: BP 122/67
[2020-05-20 05:23] VITALS: BP 131/51
[2020-05-20] MEDS: AZTREONAM 1 GM/NS 50 ML 50 ML IV SCH (05:55)
[2020-05-20] MEDS: LEVOTHYROXINE SODIUM 112 MCG TAB PO SCH (05:56)
[2020-05-20] MEDS: IPRATROPIUM BROMIDE 0.03% NASAL SPRAY 30ML SCH ×2 (06:05→08:36)
--- NOTE | 2020-05-20 06:15 | NUR ---
CONTINUE RESTING IN BED WATCHING TV, HAD A CUP OF COFFEE, TOLERATED WELL, COUGHING HAS DECREASED. CALL LIGHT IN REACH. WILL CONTINUE TO MONITOR.
[2020-05-20] MEDS ORDERED: Guaifenesin/Codeine PO (06:31)
[2020-05-20] MEDS ORDERED: ZITHROMAX500 MG PO (06:31)
[2020-05-20] MEDS ORDERED: TESSALON PERLE100 MG PO (06:31)
[2020-05-20] MEDS ORDERED: Fluticasone Propionate NS (06:34)
--- NOTE | 2020-05-20 07:00 | NUR ---
Received bedside shift report from off going night nurse. Patient in stable condition, no s/s of distress noted. No pain voiced. Telemetry applied. Bed in lowest position and locked. Call light within reach.
--- NOTE | 2020-05-20 07:05 | NUR ---
REPORT GIVEN TO AM NURSE. PATIENT CONTINUE RESTING, NO DISTRESS NOTED. CALL LIGHT IN REACH.
[2020-05-20 07:07] LABS: BASOPHILS # (AUTO) 0.1 (0.0-0.1); BASOPHILS % 0.8 % (0.0-1.0); EOSINOPHILS # (AUTO) 0.1 (0.0-0.4); EOSINOPHILS % 1.6 % (0.0-6.0); HEMATOCRIT 31.3 % (34.2-44.1); LYMPHOCYTES # (AUTO) 1.3 (1.0-3.2); LYMPHOCYTES % 16.7 % (18.0-39.1); MEAN CORPUSCULAR HEMOGLOBIN 22.7 pg (28-32); MEAN CORPUSCULAR HGB CONC 28.8 g/dL (31-35); MEAN CORPUSCULAR VOLUME 78.8 fL (81-99); MONOCYTES # (AUTO) 0.6 (0.2-0.8); MONOCYTES % 8.4 % (4.4-11.3); NEUTROPHILS # (AUTO) 5.4 (2.1-6.9); NEUTROPHILS % 72.1 % (38.7-80.0); PLATELET COUNT 211 x10e3/uL (140-360); RED BLOOD COUNT 3.97 x10e6/uL (3.6-5.1); RED CELL DISTRIBUTION WIDTH 18.2 % (11.7-14.4)
[2020-05-20 07:27] VITALS: BP 114/75
[2020-05-20 07:37] LABS: ANION GAP 14.9 mmol/L (8-16); CALCIUM 8.8 mg/dL (8.4-10.2); CREATININE, SERUM 1.55 mg/dL (0.57-1.11); POTASSIUM 3.9 mmol/L (3.5-5.1)
[2020-05-20 08:15] VITALS: BP 114/75
[2020-05-20] MEDS: RIVAROXABAN 20 MG TABLET PO SCH (08:29)
[2020-05-20] MEDS: AMIODARONE HCL 200 MG TAB PO SCH (08:29)
[2020-05-20] MEDS: FLUTICASONE PROPIONATE NASAL SPRAY NS SCH (08:29)
[2020-05-20] MEDS: PANTOPRAZOLE SOD 40 MG TABEC PO SCH (08:29)
[2020-05-20] MEDS: INSULIN REGULAR, HUMAN 100 UNIT/1 ML 3ML VIAL SQ SCH (09:07)
--- NOTE | 2020-05-20 09:16 | NUR ---
Called and spoke to Lisbeth at [facility]. Verified that they received clinicals. Informed her that pt is discharging home today. She will have electronic operator reach out to pt.
[2020-05-20] MEDS: AZITHROMYCIN 500MG/NS 250 ML 250 ML IV SCH (09:35)
--- NOTE | 2020-05-20 09:36 | NUR ---
Notified Dr. Wheeler about the patients lab results per request. Dr. Wheeler gave clearance to discharge the patient.
--- NOTE | 2020-05-20 09:43 | NUR ---
Paged Dr. Abreu to get clearance for the patient to discharge. Received a return call from Dr. Snell he gave clearance for the patient to be discharged.
--- NOTE | 2020-05-20 10:45 | NUR ---
Pt preparing to discharge. Pt's son at bedside. Security Operations Engineer provided hospitality and instructions on how to contact a director of student financial aid if needed. No need to follow at this time. TRELL VIVAS Security Operations Engineer Spiritual Care Department O: [phone]
[2020-05-20 11:20] LABS: MICROCYTOSIS SLIGHT
[2020-05-20 11:21] LABS: HYPOCHROMASIA SLIGHT
[2020-05-20 11:22] LABS: PLATELET ESTIMATE ADEQUATE; PLATELET MORPHOLOGY COMMENT NORMAL
--- NOTE | 2020-05-20 11:27 | NUR ---
Patient discharged home with home health. Patient off the unit @ 1120 via wheelchair accompanied to the lobby by PCT. Patient in stable condition, No s/s of distress noted. No pain voiced. IV access removed with tip intact. All personal items taken with the patient. Discharge teaching and instructions given to the patient. Patient verbalized understanding. Discharge paperwork along with prescriptions given to the patient.
[2020-05-20 12:23] VITALS: BP 114/75
== END 2020-05-20 11:11 | disposition home or self-care (01) | DRG 194 ==
LOC: ER 13:01 → ERHOLD 16:49 → MED/SURG2 18:28 → OBSVTOIN 05-18 17:53
PROVIDERS: ADMIT Internal Medicine; ATTEND Internal Medicine
DX: J18.9 Pneumonia, unspecified organism (principal); N17.9 Acute kidney failure, unspecified; I13.0 Hypertensive heart and chronic kidney disease with heart failure and stage 1 through stage 4 chronic kidney disease, or unspecified chronic kidney disease; I50.22 Chronic systolic (congestive) heart failure; R07.89 Other chest pain; E87.6 Hypokalemia; E03.9 Hypothyroidism, unspecified; E11.22 Type 2 diabetes mellitus with diabetic chronic kidney disease; N18.9 Chronic kidney disease, unspecified; E11.65 Type 2 diabetes mellitus with hyperglycemia; I48.0 Paroxysmal atrial fibrillation; Z90.49 Acquired absence of other specified parts of digestive tract; Z86.73 Personal history of transient ischemic attack (TIA), and cerebral infarction without residual deficits; Z88.1 Allergy status to other antibiotic agents; Z88.0 Allergy status to penicillin; Z88.8 Allergy status to other drugs, medicaments and biological substances; J32.9 Chronic sinusitis, unspecified
CPT/HCPCS: 36415; 71045; 71101; 71250; 80048; 80053; 80061; 82550; 82553; 82948; 83735; 83880; 84484; 85025; 87635; 93005; 96360; 96372; 99284; G0378; J0456; J1817; J2920; J7050

== ENCOUNTER → 2020-07-10 | Outpatient (CLI) | payer MEDICARE, OTHER ==
[~2020-07-10] MED LIST changes: +Fluticasone Propionate NS; +Guaifenesin/Codeine PO
--- NOTE | 2020-07-10 11:52 | Diagnostic Imaging Report ---
EXAM: CT Chest WITHOUT intravenous contrast 07/10/2020 10:20 AM INDICATION: Cough, pneumonia COMPARISON: Chest CT of 05/16/2020 TECHNIQUE: Chest was scanned utilizing a multidetector helical scanner from the lung apex through the level of the adrenal glands without administration of IV contrast. Coronal and sagittal reformations were obtained. Routine protocol was performed. IV CONTRAST: None RADIATION DOSE: Total DLP: 582 mGy*cm. Dose modulation, iterative reconstruction, and/or weight based adjustment of the mA/kV was utilized to reduce the radiation dose to as low as reasonably achievable. COMPLICATIONS: None FINDINGS: LINES/ TUBES: None. LUNGS AND AIRWAYS: The central airways are patent. The previously described left lower lobe consolidation measures 6.5 x 5.0 cm, not significantly changed from the prior CT of 05/16/2020 allowing for differences in technique. However, a more solid component of this lesion further inferiorly has increased in size, now measuring up to 7.2 x 6.3 cm compared to 5.1 x 3.7 cm previously. Left lower lobe subsegmental atelectasis. Multifocal peripheral interstitial and patchy opacities involve the left upper lobe and all lobes of the right lung, increased compared to the prior CT. PLEURA: Moderate left pleural effusion. No right pleural effusion. No pneumothorax. HEART AND MEDIASTINUM: The thyroid gland is normal. No supraclavicular or axillary lymphadenopathy. Mildly enlarged mediastinal lymph nodes measure up to 1.7 x 1.4 cm (axial image 51). No definite hilar lymphadenopathy. The heart is not enlarged. No pericardial effusion. Atherosclerotic calcifications involve the thoracic aorta, coronary arteries, and proximal great vessels. Mitral annular calcifications. UPPER ABDOMEN: Small sliding hiatal hernia. No acute findings in the upper abdomen. BONES: Age-indeterminate L1 compression fracture. SOFT TISSUES: Unremarkable. IMPRESSION: Interval increase in size of the more solid component of the left lower lobe consolidation which now measures up to 7.2 x 6.3 cm compared to 5.1 x 3.7 cm previously. New moderate to large left pleural effusion. Findings may represent worsening infection versus malignancy. Further evaluation with thoracentesis followed by percutaneous biopsy should be considered. Increase in multifocal bilateral peripheral patchy and interstitial opacities may represent multifocal aspiration or pneumonia in the proper clinical setting. Age indeterminate L1 compression fracture. Signed by: Boris Olmedo MD on 07/10/2020 11:49 AM
== END ==
LOC: CT 09:51
PROVIDERS: ATTEND Internal Medicine Pulmonary Disease
DX: J18.9 Pneumonia, unspecified organism (principal)
CPT/HCPCS: 71250

== ENCOUNTER → 2020-07-29 | Day surgery (SDC) | payer MEDICARE, OTHER ==
[2020-07-25 09:16] LABS: BASOPHILS # (AUTO) 0.1 (0.0-0.1); EOSINOPHILS # (AUTO) 0.2 (0.0-0.4); EOSINOPHILS % 1.9 % (0.0-6.0); HEMOGLOBIN 10.9 g/dL (12.0-16.0); LYMPHOCYTES # (AUTO) 1.3 (1.0-3.2); LYMPHOCYTES % 16.5 % (18.0-39.1); MEAN CORPUSCULAR HEMOGLOBIN 23.8 pg (28-32); MEAN CORPUSCULAR HGB CONC 29.5 g/dL (31-35); MEAN CORPUSCULAR VOLUME 80.8 fL (81-99); MONOCYTES # (AUTO) 0.7 (0.2-0.8); MONOCYTES % 8.4 % (4.4-11.3); NEUTROPHILS # (AUTO) 5.6 (2.1-6.9); NEUTROPHILS % 71.8 % (38.7-80.0); PLATELET COUNT 282 x10e3/uL (140-360); RED BLOOD COUNT 4.58 x10e6/uL (3.6-5.1); RED CELL DISTRIBUTION WIDTH 18.4 % (11.7-14.4)
[2020-07-25 09:38] LABS: ANION GAP 19.4 mmol/L (8-16); CALCIUM 9.6 mg/dL (8.4-10.2); CREATININE, SERUM 1.99 mg/dL (0.57-1.11); POTASSIUM 4.4 mmol/L (3.5-5.1)
--- NOTE | 2020-07-25 09:42 | Diagnostic Imaging Report ---
EXAMINATION: CHEST 2 VIEWS INDICATION: ^[id number] ^0925 ^PRE OP CLEARANCE COMPARISON: Chest radiograph 05/16/2020, CT chest 07/10/2020 FINDINGS: PA and lateral views TUBES and LINES: None. LUNGS: Patchy groundglass opacities throughout the lungs, notably in the periphery of the right lung. Mild diffuse interstitial prominence. PLEURA: Moderate left pleural effusion. No pneumothorax. HEART AND MEDIASTINUM: The left heart border is obscured by fluid. The heart size is grossly normal. BONES AND SOFT TISSUES: No acute osseous lesion. Soft tissues are unremarkable. UPPER ABDOMEN: No free air under the diaphragm. IMPRESSION: 1. Patchy airspace opacities throughout the lungs are not substantially changed when compared to the previous CT scan from 07/10/2020 and are again most suggestive of an infectious process. Viral pneumonia should be considered. 2. Moderate left pleural effusion. The underlying left lower lobe masslike opacity is not discretely visible on this examination. Signed by: Clarence Harrison MD on 07/25/2020 9:38 AM
[~2020-07-29] MED LIST changes: +ALBUTEROL SULF 0.083% NEB SOLN 3 ML NEB ONE; +EPINEPHRINE HCL 1:1000 1ML 1 MG/ML AMP ONE; +FAMOTIDINE 20 MG/2 ML VIAL IV ONE; +FENTANYL CITRATE/PF 100MCG/2 ML INJ ONE; +GLYCOPYRROLATE INJ 0.2 MG/ML VIAL ONE; +HYDRALAZINE HCL 20 MG/ML VIAL ONE; +LIDOCAINE HCL 2% 30 ML TUBE ONE; +LIDOCAINE HCL 2% LOCAL INJ 5 ML SDV VIAL INJ ONE; +LIDOCAINE HCL 4% 50 ML BTL ONE; +METOCLOPRAMIDE HCL 10 MG/2ML VIAL ONE; +NEOSTIGMINE 1 MG/ML 10ML VIAL ONE; +ONDANSETRON HCL INJ 2MG/ML 2ML 2 MG/ML VIAL ONE; +PROPOFOL IV EMULSION 10 MG/ML 20 ML VIAL ONE; +ROCURONIUM BROMIDE 10 MG/ML 5ML VIAL IV ONE; +SEVOFLURANE INHAL SOLN 250 ML PEN BTL ONE; +SODIUM CHLORIDE 0.9% 50ML 50 ML ONE; +SUGAMMADEX SODIUM 200 MG/2 ML VIAL IV ONE
[2020-07-29 15:33] LABS: % IRON SATURATION 8 % (15-50); IRON 30 ug/dL (50-170); TOTAL IRON BINDING CAPACITY 384 ug/dL (261-478); TRANSFERRIN 274 mg/dL (180-382)
--- NOTE | 2020-07-29 15:43 | Diagnostic Imaging Report ---
TECHNIQUE: Frontal view of the chest. INDICATION: ^POST BRONCH ^[id number] ^1500 ^PACU BAY 1 COMPARISON: 07/25/2020 DISCUSSION: Limited evaluation due to portable technique. Lines and hardware: Overlying EKG leads are noted. Heart and mediastinum: Stable. Lungs and pleura: There is interval worsening of patchy airspace opacities throughout the lungs with stable moderate left pleural effusion with associated atelectasis. Negative for large pneumothorax. Soft tissues and bones: No acute abnormality. IMPRESSION: Interval worsening of patchy bilateral airspace opacities. Stable moderate left effusion/atelectasis. Signed by: Anderson Deshpande MD on 07/29/2020 3:39 PM
[2020-07-29 15:55] VITALS: BP 130/50
--- NOTE | 2020-07-29 17:14 | Operative Report ---
DATE OF PROCEDURE: SURGEON: Krish Maravilla MD The patient of birgit, Dr. Garland Virgen. INDICATIONS: Charming, 89-year-old woman with history of non-resolving left lower lobe pneumonia despite multiple courses of antibiotics and parapneumonic effusion, as the patient has had a persisting nonproductive cough. PROCEDURE IN DETAIL: Bronchoscopy was performed under general anesthetic. The patient previously had a history of aspiration in the past. General anesthesia was provided by Dr. Spring. She was intubated with a #8 endotracheal tube. Tube was just proximal to the jocelyne. Essentially normal right-sided endobronchial anatomy. Minimal inflammation. There was severe inflammation about the left lower lobe bronchus. Minimal secretions were noted and they were white. Washings, sterile microbiology brushing was obtained. Cytology brushing was obtained under fluoroscopic control and transbronchial biopsies. Minimal bleeding, approximately 5 mL. There was no evidence of pneumothorax on screening fluoroscopy. The patient was extubated in the endoscopy OR room and taken to PACU in stable condition. Krish Maravilla MD DS/[facility] /[id number]
== END | disposition home or self-care (01) ==
LOC: ENDO 11:49
PROVIDERS: ATTEND Internal Medicine Pulmonary Disease
DX: R05 Cough (principal); Z87.01 Personal history of pneumonia (recurrent); I48.91 Unspecified atrial fibrillation; I50.9 Heart failure, unspecified; E11.9 Type 2 diabetes mellitus without complications; K21.9 Gastro-esophageal reflux disease without esophagitis; Z88.6 Allergy status to analgesic agent; Z88.1 Allergy status to other antibiotic agents; Z88.0 Allergy status to penicillin; Z01.812 Encounter for preprocedural laboratory examination; Z01.818 Encounter for other preprocedural examination; Z11.59 Encounter for screening for other viral diseases; Z79.02 Long term (current) use of antithrombotics/antiplatelets; Z79.84 Long term (current) use of oral hypoglycemic drugs
CPT/HCPCS: 31623; 31629; 36415 ×2; 71045; 71046; 80048; 82948; 83540; 84466; 85025; 87102; 87116; 87205; 87206 ×2; 87335; 88104; 88112; 88305; J0360; J2001; J2405; J2704; J2710; J2765; J3010; U0002; 31622; J0171

== ENCOUNTER → 2020-08-06 | Outpatient (CLI) | payer MEDICARE, OTHER ==
[~2020-08-06] MED LIST changes: -ALBUTEROL SULF 0.083% NEB SOLN 3 ML NEB ONE; -EPINEPHRINE HCL 1:1000 1ML 1 MG/ML AMP ONE; -FAMOTIDINE 20 MG/2 ML VIAL IV ONE; -FENTANYL CITRATE/PF 100MCG/2 ML INJ ONE; -GLYCOPYRROLATE INJ 0.2 MG/ML VIAL ONE; -HYDRALAZINE HCL 20 MG/ML VIAL ONE; +HYDROCODONE/APAP 5MG-325MG TAB ONE; -LIDOCAINE HCL 2% 30 ML TUBE ONE; -LIDOCAINE HCL 2% LOCAL INJ 5 ML SDV VIAL INJ ONE; -LIDOCAINE HCL 4% 50 ML BTL ONE; -METOCLOPRAMIDE HCL 10 MG/2ML VIAL ONE; -NEOSTIGMINE 1 MG/ML 10ML VIAL ONE; -ONDANSETRON HCL INJ 2MG/ML 2ML 2 MG/ML VIAL ONE; -PROPOFOL IV EMULSION 10 MG/ML 20 ML VIAL ONE; -ROCURONIUM BROMIDE 10 MG/ML 5ML VIAL IV ONE; -SEVOFLURANE INHAL SOLN 250 ML PEN BTL ONE; -SODIUM CHLORIDE 0.9% 50ML 50 ML ONE; -SUGAMMADEX SODIUM 200 MG/2 ML VIAL IV ONE
[2020-08-06 12:08] LABS: INR 0.97; PROTHROMBIN TIME 13.4 seconds (11.9-14.5)
--- NOTE | 2020-08-06 13:07 | Diagnostic Imaging Report ---
Ultrasound guided thoracentesis History: Left pleural effusion Comparison: none Technique: Written informed consent was obtained after discussing risks, benefits, and alternatives of the procedure with the patient. Patient was brought to the ultrasound suite and placed on the table in upright position. Pre-procedural ultrasound demonstrates a left pleural effusion. Suitable percutaneous access site was chosen in the posterior left chest. Overlying skin was prepared and draped in the usual sterile fashion. Planned needle tract was anesthetized with dilute Lidocaine for local anesthesia. Using sonographic guidance, an 5 Iranian one-step needle was advanced into the left pleural effusion. Signal Person images saved in the patient's medical record. Needle was removed, and catheter was advanced. Subsequently, 900 cc of clear yellow fluid was evacuated. The catheter was removed. Hemostasis achieved at puncture site by direct compression. The patient tolerated the procedure well. There were no complications. Post procedure chest x ray radiograph was ordered. Impression: Technically successful sonographic guided left thoracentesis with evacuation of 900 cc of clear yellow fluid. Signed by: Dr. David Bhatia MD on 08/06/2020 1:03 PM
--- NOTE | 2020-08-06 13:09 | Diagnostic Imaging Report ---
EXAM: CHEST SINGLE (NOT PORTABLE) DATE: 08/06/2020 12:53 PM INDICATION: Status post left thoracentesis COMPARISON: 07/29/2020 FINDINGS/IMPRESSION: There is no evidence of pneumothorax status post thoracentesis. Mildly increased left lower lung zone opacities noted suggestive of atelectasis and/or trace residual effusion. There are stable mildly increased interstitial opacities noted bilaterally. There is no evidence for large focal consolidation. The cardiomediastinal silhouette is stable in appearance. No acute osseous abnormality is identified. Signed by: Dr. David Bhatia MD on 08/06/2020 1:05 PM
[2020-08-06 13:42] LABS: GLUCOSE,BODY FLUID 150 mg/dL
[2020-08-06 14:08] LABS: LYMPHOCYTES,BODY FLUID 18 %; MONO/MACROPHG,BODY FLUID 79 %; NEUTROPHILS,BODY FLUID 2 %; OTHER CELLS,BODY FLUID 1 %
[2020-08-06 14:24] LABS: BODY FLUID TYPE PLEURAL
[2020-08-06 14:25] LABS: BODY FLUID APPEARANCE SL.CLOUDY; BODY FLUID COLOR YELLOW
[2020-08-06 14:26] LABS: RBC,BODY FLUID 104 cells/uL; WBC,BODY FLUID 277 cells/uL
== END ==
LOC: US 10:54
PROVIDERS: ATTEND Internal Medicine Pulmonary Disease
DX: J90 Pleural effusion, not elsewhere classified (principal)
CPT/HCPCS: 32555; 36415; 71045; 82945; 83615; 84157; 85014; 85049; 85610; 87070; 87102; 87116; 87205; 87206; 88305; 89051

== ENCOUNTER → 2020-09-15 | Outpatient (CLI) | payer MEDICARE, OTHER ==
[~2020-09-15] MED LIST changes: +FENTANYL CITRATE/PF 100MCG/2 ML INJ ONE; -HYDROCODONE/APAP 5MG-325MG TAB ONE; +MIDAZOLAM HCL 2 MG/2 ML VIAL ONE
[2020-09-15 08:55] LABS: HEMOGLOBIN 11.9 g/dL (12.0-16.0)
[2020-09-15 09:06] LABS: INR 0.89; PROTHROMBIN TIME 12.5 seconds (11.9-14.5)
[2020-09-15 09:07] LABS: PARTIAL THROMBOPLASTIN TIME 25.3 seconds (23.8-35.5)
== END ==
LOC: CT 08:30
PROVIDERS: ATTEND Internal Medicine Pulmonary Disease
DX: R91.8 Other nonspecific abnormal finding of lung field (principal); Z11.59 Encounter for screening for other viral diseases
CPT/HCPCS: 32408; 32555; 36415; 71045; 85014; 85049; 85610; 85730; U0002 ×2; 32405; J2250; J3010

== ENCOUNTER 2021-01-17 01:42 | Inpatient (IN) | payer MEDICARE ==
[~2021-01-17] VITALS: Ht 167.6 cm; Wt 70.8 kg
[~2021-01-17 01:42] MED LIST changes: -FENTANYL CITRATE/PF 100MCG/2 ML INJ ONE; -MIDAZOLAM HCL 2 MG/2 ML VIAL ONE
[2021-01-17 01:57] LABS: BASOPHILS # (AUTO) 0.1 (0.0-0.1); BASOPHILS % 0.6 % (0.0-1.0); EOSINOPHILS # (AUTO) 0.1 (0.0-0.4); EOSINOPHILS % 1.2 % (0.0-6.0); HEMATOCRIT 41.8 % (34.2-44.1); HEMOGLOBIN 12.5 g/dL (12.0-16.0); LYMPHOCYTES # (AUTO) 2.5 (1.0-3.2); LYMPHOCYTES % 25.6 % (18.0-39.1); MEAN CORPUSCULAR HEMOGLOBIN 25.2 pg (28-32); MEAN CORPUSCULAR HGB CONC 29.9 g/dL (31-35); MEAN CORPUSCULAR VOLUME 84.1 fL (81-99); MONOCYTES # (AUTO) 0.9 (0.2-0.8); MONOCYTES % 8.8 % (4.4-11.3); NEUTROPHILS # (AUTO) 6.1 (2.1-6.9); NEUTROPHILS % 63.2 % (38.7-80.0); PLATELET COUNT 272 x10e3/uL (140-360); RED BLOOD COUNT 4.97 x10e6/uL (3.6-5.1); RED CELL DISTRIBUTION WIDTH 15.9 % (11.7-14.4)
[2021-01-17] MEDS ORDERED: ASPIRIN 81 MG CHEW TAB PO ONE ×2 (02:00→03:15)
[2021-01-17 02:16] LABS: ALBUMIN 3.3 g/dL (3.5-5.0); ALBUMIN/GLOBULIN RATIO 0.8 (0.8-2.0); ANION GAP 20.5 mmol/L (8-16); CALCIUM 9.5 mg/dL (8.4-10.2); CREATININE, SERUM 1.81 mg/dL (0.57-1.11); POTASSIUM 4.5 mmol/L (3.5-5.1)
[2021-01-17 02:22] LABS: CREATINE KINASE MB 1.5 ng/mL (0-5.0)
[2021-01-17] MEDS ORDERED: MORPHINE SULFATE INJ 4 MG/ML INJ 1ML IV STA (02:23)
[2021-01-17] MEDS ORDERED: ONDANSETRON HCL INJ 2MG/ML 2ML 2 MG/ML VIAL IV STA (02:23)
[2021-01-17] MEDS ORDERED: ONDANSETRON HCL INJ 2MG/ML 2ML 2 MG/ML VIAL ONE (02:34)
[2021-01-17] MEDS ORDERED: MORPHINE SULFATE INJ 4 MG/ML INJ 1ML ONE (02:34)
[2021-01-17] MEDS ORDERED: SODIUM CHLORIDE 0.9% 1000ML 1,000 ML IV SCH ×2 (02:45→03:15)
[2021-01-17] MEDS ORDERED: MORPHINE SULFATE INJ 4 MG/ML INJ 1ML IV PRN (03:15)
[2021-01-17] MEDS ORDERED: ONDANSETRON HCL INJ 2MG/ML 2ML 2 MG/ML VIAL IV PRN (03:15)
[2021-01-17] MEDS ORDERED: ACETAMINOPHEN 325 MG TAB PO PRN (05:30)
[2021-01-17] MEDS ORDERED: METOPROLOL TARTRATE INJ 1 MG/ML VIAL IV PRN (05:30)
[2021-01-17] MEDS ORDERED: ACETAMINOPHEN/CODEINE 300MG - 30MG TAB PO PRN (06:45)
[2021-01-17 06:58] LABS: CHOL/HDL RATIO 2.8 (3.0-3.6)
[2021-01-17 07:19] LABS: THYROID STIMULATING HORMONE 7.681 uIU/mL (0.350-4.940)
[2021-01-17] MEDS: LEVOTHYROXINE SODIUM 112 MCG TAB PO SCH ×2 (07:31→10:09)
[2021-01-17] MEDS: AMIODARONE HCL 200 MG TAB PO SCH (07:31)
[2021-01-17] MEDS: FUROSEMIDE INJ 10 MG/ML 4 ML VIAL IV SCH ×2 (07:31→21:37)
[2021-01-17] MEDS ORDERED: FUROSEMIDE INJ 10 MG/ML 4 ML VIAL ONE (07:39)
[2021-01-17] MEDS ORDERED: AMIODARONE HCL 200 MG TAB ONE (07:39)
[2021-01-17] MEDS ORDERED: PANTOPRAZOLE SOD 40 MG TABEC ONE (07:39)
[2021-01-17 07:55] VITALS: BP 136/41
[2021-01-17 09:52] VITALS: BP 136/41
[2021-01-17] MEDS: PANTOPRAZOLE SOD 40 MG TABEC PO SCH ×2 (10:09→10:16)
[2021-01-17] MEDS: OLMESARTAN 20 MG TAB PO SCH (10:09)
[2021-01-17 12:30] VITALS: BP 117/52
[2021-01-17 13:23] LABS: CREATINE KINASE MB 1.3 ng/mL (0-5.0)
[2021-01-17 15:54] VITALS: BP 116/46
[2021-01-17] MEDS ORDERED: ENOXAPARIN SOD INJ 40 MG/0.4 ML SYR SC SCH (17:00)
[2021-01-17 20:00] VITALS: BP 123/52
[2021-01-17 21:30] VITALS: BP 123/52
[2021-01-17] MEDS: SIMVASTATIN 40 MG TAB PO SCH (21:37)
[2021-01-18] VITALS (8 sets, daily range): BP systolic 114–150; BP diastolic 45–56
[2021-01-18 06:27] LABS: BASOPHILS % 0.7 % (0.0-1.0); EOSINOPHILS # (AUTO) 0.1 (0.0-0.4); EOSINOPHILS % 2.1 % (0.0-6.0); HEMATOCRIT 35.5 % (34.2-44.1); HEMOGLOBIN 10.8 g/dL (12.0-16.0); LYMPHOCYTES % 18.2 % (18.0-39.1); MEAN CORPUSCULAR HEMOGLOBIN 25.4 pg (28-32); MEAN CORPUSCULAR HGB CONC 30.4 g/dL (31-35); MEAN CORPUSCULAR VOLUME 83.5 fL (81-99); MONOCYTES # (AUTO) 0.6 (0.2-0.8); NEUTROPHILS # (AUTO) 3.8 (2.1-6.9); NEUTROPHILS % 68.5 % (38.7-80.0); PLATELET COUNT 200 x10e3/uL (140-360); RED BLOOD COUNT 4.25 x10e6/uL (3.6-5.1); RED CELL DISTRIBUTION WIDTH 15.9 % (11.7-14.4)
[2021-01-18] MEDS ORDERED: MELATONIN 5 MG TABLET PO PRN (06:45)
[2021-01-18 06:49] LABS: ALBUMIN 2.5 g/dL (3.5-5.0); ALBUMIN/GLOBULIN RATIO 0.7 (0.8-2.0); ANION GAP 14.1 mmol/L (8-16); CALCIUM 8.4 mg/dL (8.4-10.2); CREATININE, SERUM 1.77 mg/dL (0.57-1.11); POTASSIUM 4.1 mmol/L (3.5-5.1)
[2021-01-18] MEDS: FUROSEMIDE 40 MG TAB PO SCH ×2 (07:10→17:24)
[2021-01-18] MEDS ORDERED: MORPHINE SULFATE INJ 2 MG/ML SYR IV PRN (07:15)
[2021-01-18 07:28] LABS: CREATINE KINASE MB 1.3 ng/mL (0-5.0)
[2021-01-18] MEDS ORDERED: ENOXAPARIN SOD INJ 40 MG/0.4 ML SYR SC SCH (09:00)
[2021-01-18] MEDS: OLMESARTAN 20 MG TAB PO SCH (09:28)
[2021-01-18] MEDS: AMIODARONE HCL 200 MG TAB PO SCH (09:28)
[2021-01-18] MEDS: PANTOPRAZOLE SOD 40 MG TABEC PO SCH (09:28)
[2021-01-18] MEDS ORDERED: DEXTROSE 50% SYRINGE 50 ML IV PRN (10:00)
[2021-01-18] MEDS: INSULIN LISPRO 100 UNIT/1 ML 3ML VIAL SQ SCH ×3 (11:30→20:25)
[2021-01-18] MEDS ORDERED: CHLORASEPTIC SPRAY 177 ML BTL MM PRN (18:45)
[2021-01-18] MEDS: SIMVASTATIN 40 MG TAB PO SCH (20:25)
[2021-01-19] VITALS: BP 125/61
[2021-01-19] MEDS: FUROSEMIDE 40 MG TAB PO SCH (01:44)
[2021-01-19 04:00] VITALS: BP 163/53
[2021-01-19] MEDS ORDERED: LEVOTHYROXINE SODIUM 125 MCG TAB PO SCH (06:00)
[2021-01-19 06:02] LABS: BASOPHILS # (AUTO) 0.1 (0.0-0.1); BASOPHILS % 0.7 % (0.0-1.0); EOSINOPHILS # (AUTO) 0.2 (0.0-0.4); EOSINOPHILS % 1.6 % (0.0-6.0); HEMATOCRIT 39.6 % (34.2-44.1); HEMOGLOBIN 12.1 g/dL (12.0-16.0); LYMPHOCYTES # (AUTO) 2.2 (1.0-3.2); LYMPHOCYTES % 23.2 % (18.0-39.1); MEAN CORPUSCULAR HEMOGLOBIN 25.6 pg (28-32); MEAN CORPUSCULAR HGB CONC 30.6 g/dL (31-35); MEAN CORPUSCULAR VOLUME 83.7 fL (81-99); MONOCYTES # (AUTO) 0.8 (0.2-0.8); MONOCYTES % 8.8 % (4.4-11.3); NEUTROPHILS # (AUTO) 6.1 (2.1-6.9); PLATELET COUNT 236 x10e3/uL (140-360); RED BLOOD COUNT 4.73 x10e6/uL (3.6-5.1); RED CELL DISTRIBUTION WIDTH 15.9 % (11.7-14.4)
[2021-01-19 06:16] LABS: INR 0.89; PROTHROMBIN TIME 12.6 seconds (11.9-14.5)
[2021-01-19 06:17] LABS: PARTIAL THROMBOPLASTIN TIME 26.7 seconds (23.8-35.5)
[2021-01-19 06:37] LABS: ALBUMIN/GLOBULIN RATIO 0.7 (0.8-2.0); ANION GAP 19.2 mmol/L (8-16); CALCIUM 9.3 mg/dL (8.4-10.2); CREATININE, SERUM 1.79 mg/dL (0.57-1.11); POTASSIUM 4.2 mmol/L (3.5-5.1)
[2021-01-19] MEDS: OLMESARTAN 20 MG TAB PO SCH (08:22)
[2021-01-19] MEDS: AMIODARONE HCL 200 MG TAB PO SCH (08:22)
[2021-01-19] MEDS: PANTOPRAZOLE SOD 40 MG TABEC PO SCH (08:22)
[2021-01-19 08:28] VITALS: BP 137/60
[2021-01-19 09:05] VITALS: BP 137/60
[2021-01-19] MEDS: INSULIN LISPRO 100 UNIT/1 ML 3ML VIAL SQ SCH ×3 (11:30→16:30)
[2021-01-19 14:02] VITALS: BP 137/51
[2021-01-19 15:10] LABS: BODY FLUID APPEARANCE SL.CLOUDY; BODY FLUID COLOR YELLOW; BODY FLUID TYPE PLEURAL; RBC,BODY FLUID 65 cells/uL; WBC,BODY FLUID 130 cells/uL
[2021-01-19] MEDS ORDERED: MELATONIN5 M2 PO (16:10)
[2021-01-19] MEDS ORDERED: SYNTHROID125 MCG PO (16:10)
[2021-01-19 17:04] LABS: LYMPHOCYTES,BODY FLUID 30 %; MONO/MACROPHG,BODY FLUID 53 %; NEUTROPHILS,BODY FLUID 17 %
== END 2021-01-19 18:28 | disposition home or self-care (01) | DRG 181 ==
LOC: ER 01:49 → ERHOLD 04:32 → MED/SURG 07:59
PROVIDERS: ADMIT Internal Medicine; ATTEND Internal Medicine
PROC: 0W9B3ZZ Drainage of Left Pleural Cavity, Percutaneous Approach (ICD-10-PCS; principal; 2021-01-19)
DX: C34.92 Malignant neoplasm of unspecified part of left bronchus or lung (principal); J90 Pleural effusion, not elsewhere classified; I13.0 Hypertensive heart and chronic kidney disease with heart failure and stage 1 through stage 4 chronic kidney disease, or unspecified chronic kidney disease; I50.32 Chronic diastolic (congestive) heart failure; C34.91 Malignant neoplasm of unspecified part of right bronchus or lung; Z90.49 Acquired absence of other specified parts of digestive tract; Z88.0 Allergy status to penicillin; Z88.8 Allergy status to other drugs, medicaments and biological substances; E66.9 Obesity, unspecified; E11.22 Type 2 diabetes mellitus with diabetic chronic kidney disease; N18.30 Chronic kidney disease, stage 3 unspecified; I48.0 Paroxysmal atrial fibrillation; K21.9 Gastro-esophageal reflux disease without esophagitis; E03.9 Hypothyroidism, unspecified; Z86.73 Personal history of transient ischemic attack (TIA), and cerebral infarction without residual deficits; Z79.01 Long term (current) use of anticoagulants; Z20.822 Contact with and (suspected) exposure to COVID-19; Z68.25 Body mass index [BMI] 25.0-25.9, adult; Z83.3 Family history of diabetes mellitus; Z80.9 Family history of malignant neoplasm, unspecified; Z82.49 Family history of ischemic heart disease and other diseases of the circulatory system
CPT/HCPCS: 32555; 36415; 71045; 74470; 80053; 80061; 82550; 82553; 82948; 83036; 83615; 83880; 84157; 84443; 84484; 85025; 85379; 85610; 85730; 89051; 93005; 93306; 99284; J1650; J1940; J2270; J2405; U0002